=== PATIENT | female | born 1960 | race Caucasian/White ===

== ENCOUNTER 2017-11-06 18:50 | Emergency (ER) | payer OTHER ==
[~2017-11-06] VITALS: Ht 152.4 cm; Wt 93.0 kg
[~2017-11-06 18:50] MED LIST: ACIDOPHILUS PR1 EAC1 PO; ALBIPROI; ALBIPROI INH; ALBU.083IS; ALBU.083IS IH; ALBU3IS; ALBU3IS INH; ALBU90OI; ALBU90OI INH; ALBU90OI6 INH; ALBU90OI61 INH; ALLO100 PO; ALPR.5 PO; ALPR1 PO; AMOCLA875 PO; AMOX250 PO; AMOX500 PO; ASPI81CH PO; AZIT250 PO; AZIT500 PO; Acidophilus La100 GM; Amitiza24 MCG; Amitiza24 MCG PO; B Complex1 EAC2 PO; BECLNI16.8; BENTYL20 MG PO; BENZ.5; BUSP10 PO; Bactrim Ds Tab1 EACH PO; CENTRUM COMPLE1 EACH PO; CENTRUM ULTRA1 EACH PO; CEPH500 PO; CHOL10002 PO; CLARITIN10 MG PO; CLON.1 PO; CLON2; CLON2 PO; CYAN100 PO; CYAN1000 PO; CYCL10 PO; Cardizem LA240 MG PO; DESO.05TCA TP; DEXA6 PO; DIAZ10 PO; DIAZ5; DILT120 PO; DILT180 PO; DILT240 PO; DIPATR PO; DOCU100 PO; DOXY100 PO; DRON5; DULERA 200 MCG/13 GM INH; DULO60; DULO60 PO; Duoneb 2.5-0.5 M3 ML INH; ESCI10; ESCI10 PO; FISH1000 PO; FLUSAL1005; FLUSAL2505; FLUSAL2505 IH; FLUSAL2505 INH; FLUSAL5005; FLUSAL5005 IH; FLUSAL5005 INH; FLUT110OIA IH; GLIM2 PO; GLIP5 PO; GUAI600T33 PO; HYDACE10; HYDACE10 PO; HYDACE10B; HYDACE10B PO; HYDACE5; HYDACE5 PO; HYDACE5325 PO; HYDACE7.5 PO; HYDCHL25; HYDCHL25 PO; HYDCOR2.5C PR; IBUP600 PO; INDO50 PO; INSUASPI SC; INSUASPI SUBQ; INSULANI SC; INSULANI SUBQ; INSULANPEN SC; IPRAIS; IPRAOI; IPRAOI INH; LAVAP17G PO; LEVFLO500 PO; LEVO750 PO; LEVOTHYROXINE PO; LEVOXYL; LEVSOD125; LEVSOD125 PO; LEVSOD150 PO; LEVSOD75 PO; LISI20 PO; LOPE2C PO; LORA1; LORA1 PO; LORA10ER PO; LORA2; LUBIPROSTONE PO; MAGCIT300 PO; MARIJUANA; MARIJUANA INH; METF500; METF500 PO; METF500C PO; METH5; METH5 PO; METO10 PO; METO50 PO; METO50ER PO; METPRE4DP PO; MICO200S PV; MONT10T PO; MULVITMIND PO; NAPR500 PO; NAPR550 PO; NAPROXEN PO; NITR.4SL SL; NITR.6SL SL; NITR100CA PO; Naprosyn500 MG PO; Norco 10-325 T1 EACH PO; Novolin R100 UNIT/M; Novolog Fl100 UNIT/1 INJ; Novolog Fl100 UNIT/1 SC; OLAN10; OLAN7.5; OMEG1CAP30; OMEG1CAP30 PO; OMEP20ER PO; OMEP40CA12 PO; ONDA4ODT MM; OXYACE5T; OXYACE5T PO; OXYACE7.5T; OXYC10TA19 PO; PANT20 PO; PANT40 PO; PHENA200 PO; POLY17UD PO; PRAV20 PO; PRAV40 PO; PRAZ2 PO; PRED10; PRED10 PO; PRED20 PO; PREDNISONE TAPER; PROM25; PROM25 PO; PROM25S PR; Prednisone PO; Prednisone20 MG PO; Prednisone50 MG PO; QUET100 PO; QUET200 PO; QUET25 PO; RANI150 PO; RANITIDINE PO; RXALBOI INH; RXHYDGUAS PO; RXLORA1 PO; RXONDA4ODT MM; RXPROM25 PO; RXSULTRIDS PO; SENN187 PO; SPIRIVA; STOOL SOFTENER 100MG; SULTRIDS PO; SYNTHROID175 MCG PO; Sudogest120 MG PO; Synthroid175 MCG PO; TEMA15 PO; THEO200ERA PO; THYROID PO; TIOT18; TIOT18 INH; TOBR.3OPSO OP; TOPI50 PO; TRAZ; TUDORZA PRESS400 MCG IH; TUDORZA PRESS400 MCG INH; UREATC TOP; VENTOLIN; VITAMIN D-32000 UNI1 PO; Ventolin Soln3 ML INH; ZINC PO; ZINC15 PO; ZINC50 M2 PO; Zithromax250 MG PO; Zofran Odt4 MG SL; Zofran4 MG PO; Zofran8 MG PO; [UNRECOGNIZED DRUG - REMARK] PO
[2018-01-03] MEDS ORDERED: Valium5 MG PO (14:46)
[2018-01-03] MEDS ORDERED: LIDO700A20 TOP (14:46)
== END 2017-11-06 21:36 | disposition home or self-care (01) ==
LOC: ER 18:50
DX: N81.10 Cystocele, unspecified (principal); N81.6 Rectocele; Z79.4 Long term (current) use of insulin; Z79.899 Other long term (current) drug therapy; J44.9 Chronic obstructive pulmonary disease, unspecified; J45.909 Unspecified asthma, uncomplicated; E11.9 Type 2 diabetes mellitus without complications; F41.0 Panic disorder [episodic paroxysmal anxiety]; G43.909 Migraine, unspecified, not intractable, without status migrainosus; F31.9 Bipolar disorder, unspecified; Z98.51 Tubal ligation status; Z98.890 Other specified postprocedural states
CPT/HCPCS: 96372; 99284; J1885

== ENCOUNTER 2018-05-01 15:07 | Emergency (ER) | payer OTHER ==
[~2018-05-01] VITALS: Ht 152.4 cm; Wt 92.5 kg
[~2018-05-01 15:07] MED LIST changes: +LIDO700A20 TOP; +Valium5 MG PO
[2018-05-01 15:41] LABS: Source, Urine Clean Catch
[2018-05-01 15:48] LABS: Appearance, Urine Hazy (Clear); Bilirubin, Urine Neg (Neg); Blood, Urine 5+ (Neg); Color, Urine Yellow (P-Yellow); Glucose Qualitative, Urine Neg (Neg); Ketones, Urine Neg (Neg); Leukocyte Esterase, Urine 3+ (Neg); Nitrite, Urine Neg (Neg); Protein, Urine 2+ (Neg); Specific Gravity, Urine 1.015 (1.003-1.022); Urobilinogen, Urine NORM (Normal)
[2018-05-01 16:06] LABS: White Blood Cells, Urine 50-100 /hpf (0-5)
[2018-05-01 16:08] LABS: Bacteria Mod /hpf; Squamous Epithelial Cells Mod /hpf (Few)
[2018-05-01] MEDS ORDERED: CEPH500 PO (17:08)
[2018-05-01] MEDS ORDERED: PROM25 PO (17:08)
== END 2018-05-01 17:54 | disposition home or self-care (01) ==
LOC: ER 15:07
PROVIDERS: Emergency Medicine
DX: T83.511A Infection and inflammatory reaction due to indwelling urethral catheter, initial encounter (principal); J44.9 Chronic obstructive pulmonary disease, unspecified; E11.9 Type 2 diabetes mellitus without complications; F31.9 Bipolar disorder, unspecified
CPT/HCPCS: 81001; 87077; 87086; 87147; 87186; 96372; 99283; J2550; J3010

== ENCOUNTER 2018-05-22 15:37 | Emergency (ER) | payer OTHER ==
[~2018-05-22] VITALS: Ht 152.4 cm; Wt 90.7 kg
[2018-05-22 16:30] LABS: BASOPHILS ABSOLUTE AUTO 0.07 K/mm3 (0.00-0.23); BASOPHILS PERCENT AUTO 1 % (0-2); EOSINOPHILS ABSOLUTE AUTO 0.31 K/mm3 (0.00-0.68); EOSINOPHILS PERCENT AUTO 4 % (0-6); Hematocrit 38.1 % (33.0-51.0); Hemoglobin 12.2 g/dL (11.5-16.0); IMMATURE GRAN ABSOLUTE AUTO 0.04 K/mm3 (0.00-0.10); IMMATURE GRAN PERCENT AUTO 1 % (0-1); LYMPHOCYTES PERCENT AUTO 25 % (21-46); MONOCYTES ABSOLUTE AUTO 0.58 K/mm3 (0.16-1.47); MONOCYTES PERCENT AUTO 8 % (4-13); Mean Corpuscular HGB 25.8 pg (26.0-34.0); Mean Corpuscular Volume 81 fL (80-100); Mean Platelet Volume 10.6 fL (9.1-12.4); NEUTROPHILS ABSOLUTE AUTO 4.53 K/mm3 (1.96-9.15); NEUTROPHILS PERCENT AUTO 62 % (41-73); Platelet Count 274 K/mm3 (150-400); RDW Coefficient Variation 15.7 % (11.7-14.2); RDW Standard Deviation 45.8 fL (35.1-46.3); Red Blood Cell Count 4.72 M/mm3 (3.80-5.20); White Blood Cell Count 7.33 K/mm3 (4.00-11.30)
[2018-05-22 16:43] LABS: Alanine Aminotransfer (ALT/SGP 35 U/L (12-78); Albumin, Blood 3.9 g/dL (3.4-5.0); Albumin/Globulin Ratio 1.1 (0.8-1.8); Alk Phos 100 U/L (50-136); Anion Gap 8 mmol/L (6-16); Aspartate Aminotrans (AST/SGOT 23 U/L (12-37); Bilirubin, Total 0.2 mg/dL (0.1-1.0); Blood Urea Nitrogen 10 mg/dL (8-24); Bun/Creatinine Ratio 13.1 (12.0-20.0); CO2, Blood 25 mmol/L (21-32); Calcium, Blood 8.8 mg/dL (8.5-10.1); Chloride, Blood 105 mmol/L (98-108); Creatinine, Blood 0.77 mg/dL (0.40-1.00); Globulin, Blood 3.4 g/dL (2.2-4.0); Glomerular Filtration Rate >60 (60-); Glucose, Blood 108 mg/dL (70-99); Potassium, Blood 4.2 mmol/L (3.5-5.5); Sodium, Blood 138 mmol/L (136-145); Total Protein, Blood 7.3 g/dL (6.4-8.2); Troponin I <0.015 ng/mL (0.000-0.040)
[2018-05-22 17:22] LABS: Source, Urine Clean Catch
[2018-05-22] MEDS ORDERED: DOCU100 PO (17:23)
[2018-05-22 17:24] LABS: Bilirubin, Urine Neg (Neg); Blood, Urine 1+ (Neg); Glucose Qualitative, Urine Neg (Neg); Ketones, Urine Neg (Neg); Leukocyte Esterase, Urine 3+ (Neg); Nitrite, Urine Neg (Neg); Protein, Urine 1+ (Neg); Urobilinogen, Urine NORM (Normal)
[2018-05-22 17:30] LABS: Appearance, Urine Hazy (Clear); Color, Urine Yellow (P-Yellow)
[2018-05-22 17:31] LABS: White Blood Cells, Urine 50-100 /hpf (0-5)
[2018-05-22 17:32] LABS: Bacteria Rare /hpf; Squamous Epithelial Cells Few /hpf (Few)
[2018-05-22] MEDS ORDERED: ESCI10 PO (17:32)
[2018-05-22] MEDS ORDERED: CENTRUM SILVER1 EAC4 PO (17:33)
[2018-05-22] MEDS ORDERED: Zofran Odt4 MG SL (18:41)
[2018-05-22] MEDS ORDERED: Bactrim Ds Tab1 EACH PO (18:41)
== END 2018-05-22 19:03 | disposition home or self-care (01) ==
LOC: ER 15:37
PROVIDERS: Emergency Medicine; Physician Assistant
DX: R07.9 Chest pain, unspecified (principal); N39.0 Urinary tract infection, site not specified; Z79.899 Other long term (current) drug therapy; Z79.84 Long term (current) use of oral hypoglycemic drugs; Z79.4 Long term (current) use of insulin; J44.9 Chronic obstructive pulmonary disease, unspecified; E11.9 Type 2 diabetes mellitus without complications; F31.9 Bipolar disorder, unspecified
CPT/HCPCS: 36415; 71046; 80053; 81001; 84484; 85025; 87086; 87147; 93005; 93010; 96374; 99284-25; J1885

== ENCOUNTER 2019-12-24 12:42 | Day surgery (SDC) | payer OTHER ==
[~2019-12-24] VITALS: Ht 152.4 cm; Wt 88.9 kg
[~2019-12-24 12:42] MED LIST changes: +CENTRUM SILVER1 EAC4 PO
--- NOTE | 2019-12-24 15:49 | NUR ---
12/24/19 1549 KITTY TSANG History, Chart, Medications and Allergies reviewed before start of procedure. 3-LEAD EKG REVIEWED WITH PHYSICIAN PRIOR TO START OF PROCEDURE. O2 VIA N/C INTACT THROUGHOUT SEDATION/PROCEDURE. MONITOR INTACT WITH CONTINUOUS PULSE OXIMETRY AND INTERMITTENT BP. MAC WITH DR. MCKINNEY
--- NOTE | 2019-12-24 16:36 | NUR ---
Patient up to Ambulate independently. Gait steady. Discharge instructions reviewed with patient. Patient verbalizes understanding. Copy given to patient to take home. Discharged via wheelchair to private car for ride home. pt's iv dc'd januszl.
== END 2019-12-24 22:54 | disposition home or self-care (01) ==
LOC: ORSCMMR 12:42 → ORD 14:30 → ORSCMMR 14:30
PROVIDERS: Internal Medicine Gastroenterology
PROC: 0DB68ZX Excision of Stomach, Via Natural or Artificial Opening Endoscopic, Diagnostic (ICD-10-PCS; principal; 2019-12-24 14:30)
DX: Z01.818 Encounter for other preprocedural examination (principal); K44.9 Diaphragmatic hernia without obstruction or gangrene; K76.0 Fatty (change of) liver, not elsewhere classified; E11.9 Type 2 diabetes mellitus without complications; J45.909 Unspecified asthma, uncomplicated; K21.0 Gastro-esophageal reflux disease with esophagitis; I10 Essential (primary) hypertension; J44.9 Chronic obstructive pulmonary disease, unspecified; E03.9 Hypothyroidism, unspecified; F31.9 Bipolar disorder, unspecified; E66.9 Obesity, unspecified; Z68.38 Body mass index [BMI] 38.0-38.9, adult; Z79.4 Long term (current) use of insulin; Z79.899 Other long term (current) drug therapy
CPT/HCPCS: 82947; J2704; J7120

== ENCOUNTER → 2020-02-21 | Outpatient (CLI) | payer OTHER | END | disposition home or self-care (01) | LOC: LAB SHORT 17:45 → LAB 17:45 | DX: R30.9 Painful micturition, unspecified (principal) | CPT/HCPCS: 87086 ==

== ENCOUNTER → 2020-05-18 | Outpatient (CLI) | payer OTHER ==
[2020-05-18 18:16] LABS: BASOPHILS ABSOLUTE AUTO 0.08 K/mm3 (0.00-0.23); BASOPHILS PERCENT AUTO 1 % (0-2); EOSINOPHILS ABSOLUTE AUTO 0.28 K/mm3 (0.00-0.68); EOSINOPHILS PERCENT AUTO 4 % (0-6); Hematocrit 41.5 % (33.0-51.0); Hemoglobin 13.3 g/dL (11.5-16.0); IMMATURE GRAN ABSOLUTE AUTO 0.02 K/mm3 (0.00-0.10); IMMATURE GRAN PERCENT AUTO 0 % (0-1); LYMPHOCYTES ABSOLUTE AUTO 2.49 K/mm3 (0.84-5.20); LYMPHOCYTES PERCENT AUTO 32 % (21-46); MONOCYTES ABSOLUTE AUTO 0.55 K/mm3 (0.16-1.47); MONOCYTES PERCENT AUTO 7 % (4-13); Mean Corpuscular HGB 26.3 pg (26.0-34.0); Mean Corpuscular Volume 82 fL (80-100); Mean Platelet Volume 10.6 fL (9.1-12.4); NEUTROPHILS ABSOLUTE AUTO 4.41 K/mm3 (1.96-9.15); NEUTROPHILS PERCENT AUTO 56 % (41-73); Platelet Count 224 K/mm3 (150-400); RDW Coefficient Variation 17.8 % (11.7-14.2); RDW Standard Deviation 52.4 fL (35.1-46.3); Red Blood Cell Count 5.05 M/mm3 (3.80-5.20); White Blood Cell Count 7.83 K/mm3 (4.00-11.30)
[2020-05-18 18:41] LABS: Uric Acid, Blood 4.4 mg/dL (2.6-6.0)
[2020-05-18 19:17] LABS: Alanine Aminotransfer (ALT/SGP 25 U/L (12-78); Albumin, Blood 3.9 g/dL (3.4-5.0); Albumin/Globulin Ratio 1.2 (0.8-1.8); Alk Phos 100 U/L (50-136); Anion Gap 7 mmol/L (6-16); Aspartate Aminotrans (AST/SGOT 15 U/L (12-37); Bilirubin, Total 0.3 mg/dL (0.1-1.0); Blood Urea Nitrogen 20 mg/dL (8-24); Bun/Creatinine Ratio 24.9 (12.0-20.0); CO2, Blood 27 mmol/L (21-32); Calcium, Blood 9.1 mg/dL (8.5-10.1); Chloride, Blood 106 mmol/L (98-108); Globulin, Blood 3.3 g/dL (2.2-4.0); Glomerular Filtration Rate >60 (60-); Glucose, Blood 186 mg/dL (70-99); Potassium, Blood 4.3 mmol/L (3.5-5.5); Sodium, Blood 140 mmol/L (136-145); Total Protein, Blood 7.2 g/dL (6.4-8.2)
== END | disposition home or self-care (01) ==
LOC: LAB 16:45 → LAB SHORT 16:45
PROVIDERS: Family Medicine
DX: E11.9 Type 2 diabetes mellitus without complications (principal); M10.9 Gout, unspecified
CPT/HCPCS: 36415; 80053; 84550; 85025

== ENCOUNTER 2020-06-08 09:23 | Emergency (ER) | payer OTHER ==
[~2020-06-08] VITALS: Ht 152.4 cm; Wt 94.3 kg
== END 2020-06-08 13:04 | disposition home or self-care (01) ==
LOC: ER 09:23
DX: M25.551 Pain in right hip (principal); I10 Essential (primary) hypertension; E11.9 Type 2 diabetes mellitus without complications; J44.9 Chronic obstructive pulmonary disease, unspecified; F41.0 Panic disorder [episodic paroxysmal anxiety]; F41.9 Anxiety disorder, unspecified; F31.9 Bipolar disorder, unspecified; Z79.4 Long term (current) use of insulin; Z79.899 Other long term (current) drug therapy
CPT/HCPCS: 73502; 73700; 96374; 96375; 96376; 99284-25; J1170; J2405

== ENCOUNTER 2021-01-04 10:01 | Emergency (ER) | payer OTHER ==
[~2021-01-04] VITALS: Ht 152.4 cm; Wt 82.1 kg
[2021-01-04] MEDS ORDERED: Ativan1 MG PO (10:30)
[2021-01-04] MEDS ORDERED: TRAZ50 PO (10:30)
[2021-01-04 10:36] LABS: BASOPHILS ABSOLUTE AUTO 0.09 K/mm3 (0.00-0.23); BASOPHILS PERCENT AUTO 1 % (0-2); EOSINOPHILS ABSOLUTE AUTO 0.39 K/mm3 (0.00-0.68); EOSINOPHILS PERCENT AUTO 5 % (0-6); Hematocrit 43.2 % (33.0-51.0); Hemoglobin 14.7 g/dL (11.5-16.0); IMMATURE GRAN ABSOLUTE AUTO 0.03 K/mm3 (0.00-0.10); IMMATURE GRAN PERCENT AUTO 0 % (0-1); LYMPHOCYTES ABSOLUTE AUTO 2.05 K/mm3 (0.84-5.20); LYMPHOCYTES PERCENT AUTO 28 % (21-46); MONOCYTES ABSOLUTE AUTO 0.45 K/mm3 (0.16-1.47); MONOCYTES PERCENT AUTO 6 % (4-13); Mean Corpuscular HGB 29.8 pg (26.0-34.0); Mean Corpuscular Volume 88 fL (80-100); Mean Platelet Volume 10.6 fL (9.1-12.4); NEUTROPHILS ABSOLUTE AUTO 4.21 K/mm3 (1.96-9.15); NEUTROPHILS PERCENT AUTO 58 % (41-73); Platelet Count 212 K/mm3 (150-400); RDW Coefficient Variation 12.8 % (11.7-14.2); RDW Standard Deviation 41.1 fL (35.1-46.3); Red Blood Cell Count 4.93 M/mm3 (3.80-5.20); White Blood Cell Count 7.22 K/mm3 (4.00-11.30)
[2021-01-04] MEDS ORDERED: OMEP20ER PO (10:44)
[2021-01-04 11:02] LABS: Alanine Aminotransfer (ALT/SGP 27 U/L (12-78); Albumin/Globulin Ratio 1.3 (0.8-1.8); Alk Phos 95 U/L (50-136); Anion Gap 8 mmol/L (6-16); Aspartate Aminotrans (AST/SGOT 14 U/L (12-37); Bilirubin, Total 0.4 mg/dL (0.1-1.0); Blood Urea Nitrogen 14 mg/dL (8-24); Bun/Creatinine Ratio 19.3 (12.0-20.0); CO2, Blood 24 mmol/L (21-32); Chloride, Blood 105 mmol/L (98-108); Creatinine, Blood 0.73 mg/dL (0.40-1.00); Globulin, Blood 3.1 g/dL (2.2-4.0); Glomerular Filtration Rate >60 (60-); Glucose, Blood 149 mg/dL (70-99); Potassium, Blood 4.4 mmol/L (3.5-5.5); Sodium, Blood 137 mmol/L (136-145); Total Protein, Blood 7.1 g/dL (6.4-8.2); Troponin I <0.015 ng/mL (0.000-0.040)
== END 2021-01-04 13:34 | disposition home or self-care (01) ==
LOC: ER 10:01
PROVIDERS: Emergency Medicine
DX: R07.9 Chest pain, unspecified (principal); J44.9 Chronic obstructive pulmonary disease, unspecified; E11.9 Type 2 diabetes mellitus without complications; I10 Essential (primary) hypertension; K21.9 Gastro-esophageal reflux disease without esophagitis; E03.9 Hypothyroidism, unspecified; Z79.82 Long term (current) use of aspirin; Z79.899 Other long term (current) drug therapy
CPT/HCPCS: 36415; 71045; 80053; 84484; 85025; 93005; 93010; 96374; 96375; 99285-25; A9270; C9113; J1790; J2060; J7030

== ENCOUNTER 2021-01-08 23:29 | Emergency (ER) | payer OTHER ==
[~2021-01-08] VITALS: Ht 152.4 cm; Wt 83.5 kg
[~2021-01-08 23:29] MED LIST changes: +Ativan1 MG PO; +TRAZ50 PO
[2021-01-09 01:09] LABS: BASOPHILS ABSOLUTE AUTO 0.09 K/mm3 (0.00-0.23); BASOPHILS PERCENT AUTO 1 % (0-2); EOSINOPHILS ABSOLUTE AUTO 0.45 K/mm3 (0.00-0.68); EOSINOPHILS PERCENT AUTO 7 % (0-6); Hematocrit 39.6 % (33.0-51.0); Hemoglobin 13.4 g/dL (11.5-16.0); IMMATURE GRAN ABSOLUTE AUTO 0.02 K/mm3 (0.00-0.10); IMMATURE GRAN PERCENT AUTO 0 % (0-1); LYMPHOCYTES ABSOLUTE AUTO 2.33 K/mm3 (0.84-5.20); LYMPHOCYTES PERCENT AUTO 37 % (21-46); MONOCYTES PERCENT AUTO 8 % (4-13); Mean Corpuscular HGB 30.2 pg (26.0-34.0); Mean Corpuscular HGB Conc 33.8 g/dL (31.5-36.5); Mean Corpuscular Volume 89 fL (80-100); Mean Platelet Volume 10.9 fL (9.1-12.4); NEUTROPHILS ABSOLUTE AUTO 2.93 K/mm3 (1.96-9.15); NEUTROPHILS PERCENT AUTO 46 % (41-73); Platelet Count 187 K/mm3 (150-400); RDW Coefficient Variation 13.1 % (11.7-14.2); RDW Standard Deviation 42.7 fL (35.1-46.3); Red Blood Cell Count 4.44 M/mm3 (3.80-5.20); White Blood Cell Count 6.32 K/mm3 (4.00-11.30)
[2021-01-09 01:22] LABS: Alanine Aminotransfer (ALT/SGP 26 U/L (12-78); Albumin, Blood 3.8 g/dL (3.4-5.0); Albumin/Globulin Ratio 1.3 (0.8-1.8); Alk Phos 88 U/L (50-136); Anion Gap 4 mmol/L (6-16); Aspartate Aminotrans (AST/SGOT 12 U/L (12-37); Bilirubin, Total 0.3 mg/dL (0.1-1.0); Blood Urea Nitrogen 14 mg/dL (8-24); Bun/Creatinine Ratio 16.2 (12.0-20.0); CO2, Blood 30 mmol/L (21-32); Calcium, Blood 8.8 mg/dL (8.5-10.1); Chloride, Blood 105 mmol/L (98-108); Creatinine, Blood 0.87 mg/dL (0.40-1.00); Glomerular Filtration Rate >60 (60-); Glucose, Blood 145 mg/dL (70-99); Potassium, Blood 3.8 mmol/L (3.5-5.5); Sodium, Blood 139 mmol/L (136-145); Total Protein, Blood 6.8 g/dL (6.4-8.2)
[2021-01-09 02:16] LABS: Troponin I <0.015 ng/mL (0.000-0.040)
[2021-01-09] MEDS ORDERED: Prednisone20 MG PO (02:22)
== END 2021-01-09 02:45 | disposition home or self-care (01) ==
LOC: ER 23:29
PROVIDERS: Emergency Medicine
DX: J44.1 Chronic obstructive pulmonary disease with (acute) exacerbation (principal); E11.9 Type 2 diabetes mellitus without complications; Z79.899 Other long term (current) drug therapy; Z79.4 Long term (current) use of insulin
CPT/HCPCS: 36415; 80053; 84484; 85025; 93005; 93010; 94640; 96374; 99284; J2930

== ENCOUNTER 2021-01-09 13:07 | Emergency (ER) | payer OTHER ==
[~2021-01-09] VITALS: Ht 152.4 cm; Wt 83.5 kg
[2021-01-09 14:08] LABS: BASOPHILS ABSOLUTE AUTO 0.04 K/mm3 (0.00-0.23); BASOPHILS PERCENT AUTO 1 % (0-2); EOSINOPHILS ABSOLUTE AUTO 0.01 K/mm3 (0.00-0.68); EOSINOPHILS PERCENT AUTO 0 % (0-6); Hematocrit 41.5 % (33.0-51.0); Hemoglobin 14.2 g/dL (11.5-16.0); IMMATURE GRAN ABSOLUTE AUTO 0.07 K/mm3 (0.00-0.10); IMMATURE GRAN PERCENT AUTO 1 % (0-1); LYMPHOCYTES ABSOLUTE AUTO 0.72 K/mm3 (0.84-5.20); LYMPHOCYTES PERCENT AUTO 9 % (21-46); MONOCYTES ABSOLUTE AUTO 0.09 K/mm3 (0.16-1.47); MONOCYTES PERCENT AUTO 1 % (4-13); Mean Corpuscular HGB Conc 34.2 g/dL (31.5-36.5); Mean Corpuscular Volume 88 fL (80-100); Mean Platelet Volume 10.7 fL (9.1-12.4); NEUTROPHILS ABSOLUTE AUTO 6.99 K/mm3 (1.96-9.15); NEUTROPHILS PERCENT AUTO 88 % (41-73); Platelet Count 200 K/mm3 (150-400); RDW Coefficient Variation 12.9 % (11.7-14.2); RDW Standard Deviation 41.7 fL (35.1-46.3); Red Blood Cell Count 4.73 M/mm3 (3.80-5.20); White Blood Cell Count 7.92 K/mm3 (4.00-11.30)
[2021-01-09 14:25] LABS: Alanine Aminotransfer (ALT/SGP 29 U/L (12-78); Albumin, Blood 4.2 g/dL (3.4-5.0); Albumin/Globulin Ratio 1.2 (0.8-1.8); Alk Phos 95 U/L (50-136); Anion Gap 8 mmol/L (6-16); Aspartate Aminotrans (AST/SGOT 16 U/L (12-37); Bilirubin, Total 0.3 mg/dL (0.1-1.0); Blood Urea Nitrogen 16 mg/dL (8-24); Bun/Creatinine Ratio 19.3 (12.0-20.0); CO2, Blood 24 mmol/L (21-32); Calcium, Blood 9.7 mg/dL (8.5-10.1); Chloride, Blood 103 mmol/L (98-108); Creatinine, Blood 0.83 mg/dL (0.40-1.00); Globulin, Blood 3.6 g/dL (2.2-4.0); Glomerular Filtration Rate >60 (60-); Glucose, Blood 320 mg/dL (70-99); Potassium, Blood 4.2 mmol/L (3.5-5.5); Sodium, Blood 135 mmol/L (136-145); Total Protein, Blood 7.8 g/dL (6.4-8.2)
== END 2021-01-09 17:49 | disposition home or self-care (01) ==
LOC: ER 13:07
PROVIDERS: Emergency Medicine
DX: E11.65 Type 2 diabetes mellitus with hyperglycemia (principal); J44.1 Chronic obstructive pulmonary disease with (acute) exacerbation
CPT/HCPCS: 36415; 80053; 82010; 82800; 82947; 84484; 85025; 93005; 93010; 94640; 99284-25; A9270; J7030

== ENCOUNTER 2021-01-30 15:23 | Emergency (ER) | payer OTHER ==
[~2021-01-30] VITALS: Ht 152.4 cm; Wt 84.4 kg
== END 2021-01-30 16:28 | disposition home or self-care (01) ==
LOC: ER 15:23
DX: S63.613A Unspecified sprain of left middle finger, initial encounter (principal); J44.9 Chronic obstructive pulmonary disease, unspecified; E11.9 Type 2 diabetes mellitus without complications; G89.4 Chronic pain syndrome; E03.9 Hypothyroidism, unspecified; I10 Essential (primary) hypertension; K21.9 Gastro-esophageal reflux disease without esophagitis; Z79.4 Long term (current) use of insulin; Z79.899 Other long term (current) drug therapy; W23.0XXA Caught, crushed, jammed, or pinched between moving objects, initial encounter
CPT/HCPCS: 29130; 73140; 96372-59; 99283-25; J1885

== ENCOUNTER 2021-02-03 18:45 | Emergency (ER) | payer OTHER ==
[~2021-02-03] VITALS: Ht 152.4 cm; Wt 81.7 kg
== END 2021-02-03 21:11 | disposition home or self-care (01) ==
LOC: ER 18:45
DX: S56.11 Strain of flexor muscle, fascia and tendon of other and unspecified finger at forearm level (principal); J44.9 Chronic obstructive pulmonary disease, unspecified; E11.9 Type 2 diabetes mellitus without complications; Z79.899 Other long term (current) drug therapy; W23.0XXD Caught, crushed, jammed, or pinched between moving objects, subsequent encounter
CPT/HCPCS: 29130; 73140; 99283-25; A9270

== ENCOUNTER 2021-02-14 18:08 | Emergency (ER) | payer OTHER ==
[~2021-02-14] VITALS: Ht 152.4 cm; Wt 84.4 kg
[2021-02-14 18:53] LABS: BASOPHILS ABSOLUTE AUTO 0.08 K/mm3 (0.00-0.23); BASOPHILS PERCENT AUTO 1 % (0-2); EOSINOPHILS ABSOLUTE AUTO 0.37 K/mm3 (0.00-0.68); EOSINOPHILS PERCENT AUTO 6 % (0-6); Hematocrit 39.3 % (33.0-51.0); Hemoglobin 13.3 g/dL (11.5-16.0); IMMATURE GRAN ABSOLUTE AUTO 0.03 K/mm3 (0.00-0.10); IMMATURE GRAN PERCENT AUTO 1 % (0-1); LYMPHOCYTES ABSOLUTE AUTO 2.65 K/mm3 (0.84-5.20); LYMPHOCYTES PERCENT AUTO 40 % (21-46); MONOCYTES ABSOLUTE AUTO 0.44 K/mm3 (0.16-1.47); MONOCYTES PERCENT AUTO 7 % (4-13); Mean Corpuscular HGB 30.1 pg (26.0-34.0); Mean Corpuscular HGB Conc 33.8 g/dL (31.5-36.5); Mean Corpuscular Volume 89 fL (80-100); Mean Platelet Volume 10.2 fL (9.1-12.4); NEUTROPHILS ABSOLUTE AUTO 3.05 K/mm3 (1.96-9.15); NEUTROPHILS PERCENT AUTO 46 % (41-73); Platelet Count 222 K/mm3 (150-400); RDW Coefficient Variation 13.1 % (11.7-14.2); RDW Standard Deviation 42.9 fL (35.1-46.3); Red Blood Cell Count 4.42 M/mm3 (3.80-5.20); White Blood Cell Count 6.62 K/mm3 (4.00-11.30)
[2021-02-14 19:11] LABS: Alanine Aminotransfer (ALT/SGP 25 U/L (12-78); Albumin/Globulin Ratio 1.3 (0.8-1.8); Alk Phos 85 U/L (50-136); Anion Gap 3 mmol/L (6-16); Aspartate Aminotrans (AST/SGOT 16 U/L (12-37); Bilirubin, Total 0.4 mg/dL (0.1-1.0); Blood Urea Nitrogen 18 mg/dL (8-24); Bun/Creatinine Ratio 21.5 (12.0-20.0); CO2, Blood 29 mmol/L (21-32); Calcium, Blood 9.3 mg/dL (8.5-10.1); Chloride, Blood 106 mmol/L (98-108); Creatinine, Blood 0.84 mg/dL (0.40-1.00); Glomerular Filtration Rate >60 (60-); Glucose, Blood 127 mg/dL (70-99); Potassium, Blood 4.1 mmol/L (3.5-5.5); Sodium, Blood 138 mmol/L (136-145); Troponin I <0.015 ng/mL (0.000-0.040)
[2021-02-14] MEDS ORDERED: Prednisone50 MG PO (22:44)
[2021-02-14] MEDS ORDERED: ATROVENT HFA12.9 GM INH (22:44)
[2021-02-14] MEDS ORDERED: CYCL10 PO (22:44)
== END 2021-02-14 23:27 | disposition home or self-care (01) ==
LOC: ER 18:08
PROVIDERS: Physician Assistant
DX: J44.1 Chronic obstructive pulmonary disease with (acute) exacerbation (principal); S76.011A Strain of muscle, fascia and tendon of right hip, initial encounter; Z79.899 Other long term (current) drug therapy; X50.1XXA Overexertion from prolonged static or awkward postures, initial encounter
CPT/HCPCS: 36415; 71046; 80053; 84484; 85025; 93005; 93010; 94640; 96374; 99285-25; A9270; J1885; J7512

== ENCOUNTER 2021-03-30 10:41 | Emergency (ER) | payer OTHER ==
[~2021-03-30] VITALS: Ht 152.4 cm; Wt 83.5 kg
[~2021-03-30 10:41] MED LIST changes: +ATROVENT HFA12.9 GM INH
[2021-03-30 12:26] LABS: BASOPHILS ABSOLUTE AUTO 0.04 K/mm3 (0.00-0.23); BASOPHILS PERCENT AUTO 0 % (0-2); EOSINOPHILS ABSOLUTE AUTO 0.03 K/mm3 (0.00-0.68); EOSINOPHILS PERCENT AUTO 0 % (0-6); Hematocrit 46.4 % (33.0-51.0); Hemoglobin 15.6 g/dL (11.5-16.0); IMMATURE GRAN ABSOLUTE AUTO 0.04 K/mm3 (0.00-0.10); IMMATURE GRAN PERCENT AUTO 0 % (0-1); LYMPHOCYTES PERCENT AUTO 9 % (21-46); MONOCYTES ABSOLUTE AUTO 1.04 K/mm3 (0.16-1.47); MONOCYTES PERCENT AUTO 8 % (4-13); Mean Corpuscular HGB 30.1 pg (26.0-34.0); Mean Corpuscular HGB Conc 33.6 g/dL (31.5-36.5); Mean Corpuscular Volume 90 fL (80-100); Mean Platelet Volume 11.1 fL (9.1-12.4); NEUTROPHILS ABSOLUTE AUTO 10.23 K/mm3 (1.96-9.15); NEUTROPHILS PERCENT AUTO 82 % (41-73); Platelet Count 322 K/mm3 (150-400); RDW Coefficient Variation 12.9 % (11.7-14.2); RDW Standard Deviation 42.3 fL (35.1-46.3); Red Blood Cell Count 5.18 M/mm3 (3.80-5.20); White Blood Cell Count 12.48 K/mm3 (4.00-11.30)
[2021-03-30 12:32] LABS: Alanine Aminotransfer (ALT/SGP 25 U/L (12-78); Albumin, Blood 4.3 g/dL (3.4-5.0); Albumin/Globulin Ratio 1.2 (0.8-1.8); Alk Phos 77 U/L (50-136); Anion Gap 7 mmol/L (6-16); Aspartate Aminotrans (AST/SGOT 18 U/L (12-37); Bilirubin, Total 0.4 mg/dL (0.1-1.0); Blood Urea Nitrogen 24 mg/dL (8-24); CO2, Blood 22 mmol/L (21-32); Calcium, Blood 9.2 mg/dL (8.5-10.1); Chloride, Blood 109 mmol/L (98-108); Creatinine, Blood 0.78 mg/dL (0.40-1.00); Globulin, Blood 3.5 g/dL (2.2-4.0); Glomerular Filtration Rate >60 (60-); Glucose, Blood 140 mg/dL (70-99); Potassium, Blood 4.1 mmol/L (3.5-5.5); Sodium, Blood 138 mmol/L (136-145); Total Protein, Blood 7.8 g/dL (6.4-8.2)
[2021-03-30 13:12] LABS: Source, Urine Clean Catch
[2021-03-30 13:22] LABS: Appearance, Urine Clear (Clear); Bilirubin, Urine Neg (Neg); Blood, Urine Neg (Neg); Color, Urine Yellow (P-Yellow); Glucose Qualitative, Urine Neg (Neg); Ketones, Urine 4+ (Neg); Leukocyte Esterase, Urine Neg (Neg); Nitrite, Urine Neg (Neg); Protein, Urine 2+ (Neg); Specific Gravity, Urine 1.025 (1.003-1.022); Urobilinogen, Urine NORM (Normal)
[2021-03-30 13:35] LABS: Bacteria Mod /hpf; Hyaline Casts 0-2 /lpf (0-2); Red Blood Cells, Urine 0-2 /hpf (0-2); Squamous Epithelial Cells Few /hpf (Few); White Blood Cells, Urine 0-2 /hpf (0-5)
== END 2021-03-30 16:16 | disposition home or self-care (01) ==
LOC: ER 10:41
PROVIDERS: Physician Assistant
DX: K52.9 Noninfective gastroenteritis and colitis, unspecified (principal); D72.829 Elevated white blood cell count, unspecified; J44.9 Chronic obstructive pulmonary disease, unspecified; E13.9 Other specified diabetes mellitus without complications; Z20.822 Contact with and (suspected) exposure to COVID-19; Z79.899 Other long term (current) drug therapy
CPT/HCPCS: 0031A; 36415; 74177; 80053; 81001; 83690; 85025; 86850; 86900; 86901; 87086; 96374-59; 99284-25; J2405; J7120; Q9967

== ENCOUNTER → 2021-04-02 | Outpatient (CLI) | payer OTHER ==
[2021-04-03 12:43] LABS: C DIFFICILE DNA NEGATIVE (Negative)
== END | disposition home or self-care (01) ==
LOC: LAB 10:33 → LAB SHORT 10:33
PROVIDERS: Emergency Medicine
DX: K52.9 Noninfective gastroenteritis and colitis, unspecified (principal)
CPT/HCPCS: 87493

== ENCOUNTER 2022-01-02 10:04 | Emergency (ER) | payer OTHER ==
[~2022-01-02] VITALS: Ht 152.4 cm; Wt 77.1 kg
[2022-01-02 11:10] LABS: BASOPHILS ABSOLUTE AUTO 0.08 K/mm3 (0.00-0.23); BASOPHILS PERCENT AUTO 1 % (0-2); EOSINOPHILS ABSOLUTE AUTO 0.23 K/mm3 (0.00-0.68); EOSINOPHILS PERCENT AUTO 4 % (0-6); Hematocrit 43.4 % (33.0-51.0); Hemoglobin 14.9 g/dL (11.5-16.0); IMMATURE GRAN ABSOLUTE AUTO 0.02 K/mm3 (0.00-0.10); IMMATURE GRAN PERCENT AUTO 0 % (0-1); LYMPHOCYTES ABSOLUTE AUTO 2.15 K/mm3 (0.84-5.20); LYMPHOCYTES PERCENT AUTO 34 % (21-46); MONOCYTES ABSOLUTE AUTO 0.39 K/mm3 (0.16-1.47); MONOCYTES PERCENT AUTO 6 % (4-13); Mean Corpuscular HGB 31.1 pg (26.0-34.0); Mean Corpuscular HGB Conc 34.3 g/dL (31.5-36.5); Mean Corpuscular Volume 91 fL (80-100); Mean Platelet Volume 11.4 fL (9.1-12.4); NEUTROPHILS ABSOLUTE AUTO 3.38 K/mm3 (1.96-9.15); NEUTROPHILS PERCENT AUTO 54 % (41-73); Platelet Count 196 K/mm3 (150-400); RDW Coefficient Variation 12.5 % (11.7-14.2); RDW Standard Deviation 41.7 fL (35.1-46.3); Red Blood Cell Count 4.79 M/mm3 (3.80-5.20); White Blood Cell Count 6.25 K/mm3 (4.00-11.30)
[2022-01-02 11:14] LABS: Influenza A, PCR NEGATIVE (NEGATIVE); Influenza B, PCR NEGATIVE (NEGATIVE); Resp Syncytial Virus, PCR NEGATIVE (NEGATIVE); SARS-Cov-2 (COVID-19) PCR, MMC NEGATIVE (NEGATIVE)
[2022-01-02 11:14] LABS: Albumin, Blood 4.1 g/dL (3.4-5.0); Albumin/Globulin Ratio 1.3 (0.8-1.8); Bilirubin, Total 0.6 mg/dL (0.1-1.0); Bun/Creatinine Ratio 18.6 (12.0-20.0); Calcium, Blood 9.1 mg/dL (8.5-10.1); Creatinine, Blood 0.7 mg/dL (0.40-1.00); Globulin, Blood 3.1 g/dL (2.2-4.0); Potassium, Blood 4.2 mmol/L (3.5-5.5); Total Protein, Blood 7.2 g/dL (6.4-8.2)
[2022-01-02] MEDS ORDERED: ONDA4ODT MM (12:02)
== END 2022-01-02 13:13 | disposition home or self-care (01) ==
LOC: ER 10:04
PROVIDERS: Emergency Medicine
DX: R10.31 Right lower quadrant pain (principal); J44.9 Chronic obstructive pulmonary disease, unspecified; E11.9 Type 2 diabetes mellitus without complications; F31.9 Bipolar disorder, unspecified; Z79.899 Other long term (current) drug therapy; Z20.822 Contact with and (suspected) exposure to COVID-19
CPT/HCPCS: 0241U; 36415; 74177; 80053; 83690; 85025; 96374-59; 96375; 99284-25; J2405; J3010; J7030; Q9967

== ENCOUNTER 2022-02-17 20:57 | Emergency (ER) | payer OTHER ==
[~2022-02-17] VITALS: Ht 167.6 cm; Wt 77.1 kg
[2022-02-17 21:37] LABS: BASOPHILS ABSOLUTE AUTO 0.01 K/mm3 (0.00-0.23); BASOPHILS PERCENT AUTO 0 % (0-2); EOSINOPHILS ABSOLUTE AUTO 0.01 K/mm3 (0.00-0.68); EOSINOPHILS PERCENT AUTO 0 % (0-6); Hematocrit 41.5 % (33.0-51.0); Hemoglobin 14.6 g/dL (11.5-16.0); IMMATURE GRAN ABSOLUTE AUTO 0.03 K/mm3 (0.00-0.10); IMMATURE GRAN PERCENT AUTO 1 % (0-1); LYMPHOCYTES ABSOLUTE AUTO 0.82 K/mm3 (0.84-5.20); LYMPHOCYTES PERCENT AUTO 14 % (21-46); MONOCYTES PERCENT AUTO 2 % (4-13); Mean Corpuscular HGB 31.1 pg (26.0-34.0); Mean Corpuscular HGB Conc 35.2 g/dL (31.5-36.5); Mean Corpuscular Volume 89 fL (80-100); Mean Platelet Volume 11.2 fL (9.1-12.4); NEUTROPHILS ABSOLUTE AUTO 4.84 K/mm3 (1.96-9.15); NEUTROPHILS PERCENT AUTO 83 % (41-73); NRBC ABSOLUTE 0.05 K/mm3 (0.00-0.02); NRBC Auto 0.9 /100 WBC (0.0-0.2); Platelet Count 170 K/mm3 (150-400); RDW Coefficient Variation 11.9 % (11.7-14.2); RDW Standard Deviation 38.2 fL (35.1-46.3); Red Blood Cell Count 4.69 M/mm3 (3.80-5.20); White Blood Cell Count 5.81 K/mm3 (4.00-11.30)
[2022-02-17 21:54] LABS: Albumin/Globulin Ratio 1.2 (0.8-1.8); Bilirubin, Total 0.4 mg/dL (0.1-1.0); Bun/Creatinine Ratio 22.7 (12.0-20.0); Calcium, Blood 9.6 mg/dL (8.5-10.1); Creatinine, Blood 0.66 mg/dL (0.40-1.00); Globulin, Blood 3.3 g/dL (2.2-4.0); Potassium, Blood 4.1 mmol/L (3.5-5.5); Total Protein, Blood 7.3 g/dL (6.4-8.2)
[2022-02-18 04:05] LABS: Source, Urine Clean Catch
[2022-02-18 04:15] LABS: Bilirubin, Urine Neg (Neg); Blood, Urine Neg (Neg); Glucose Qualitative, Urine 4+ (Neg); Ketones, Urine Neg (Neg); Leukocyte Esterase, Urine Neg (Neg); Nitrite, Urine Neg (Neg); Protein, Urine 1+ (Neg); Specific Gravity, Urine 1.015 (1.003-1.022); Urobilinogen, Urine NORM (Normal)
[2022-02-18 04:23] LABS: Appearance, Urine Clear (Clear); Color, Urine Yellow (P-Yellow)
== END 2022-02-18 04:50 | disposition home or self-care (01) ==
LOC: ER 20:57
PROVIDERS: Physician Assistant
DX: R10.32 Left lower quadrant pain (principal); G89.29 Other chronic pain; J44.9 Chronic obstructive pulmonary disease, unspecified; E11.65 Type 2 diabetes mellitus with hyperglycemia; Z79.899 Other long term (current) drug therapy
CPT/HCPCS: 36415; 74177; 80053; 83690; 85025; A9270; J1885; J7030; Q9967

== ENCOUNTER 2022-02-19 11:41 | Emergency (ER) | payer OTHER ==
[~2022-02-19] VITALS: Ht 152.4 cm; Wt 79.4 kg
== END 2022-02-19 17:45 | disposition home or self-care (01) ==
LOC: ER 11:41
DX: K59.00 Constipation, unspecified (principal); J44.9 Chronic obstructive pulmonary disease, unspecified; E11.9 Type 2 diabetes mellitus without complications; Z79.899 Other long term (current) drug therapy
CPT/HCPCS: 99283

== ENCOUNTER 2022-03-16 09:02 | Emergency (ER) | payer OTHER ==
[~2022-03-16] VITALS: Ht 152.4 cm; Wt 79.4 kg
[2022-03-16 10:16] LABS: BASOPHILS ABSOLUTE AUTO 0.04 K/mm3 (0.00-0.23); BASOPHILS PERCENT AUTO 1 % (0-2); EOSINOPHILS ABSOLUTE AUTO 0.16 K/mm3 (0.00-0.68); EOSINOPHILS PERCENT AUTO 3 % (0-6); Hemoglobin 14.5 g/dL (11.5-16.0); IMMATURE GRAN ABSOLUTE AUTO 0.02 K/mm3 (0.00-0.10); IMMATURE GRAN PERCENT AUTO 0 % (0-1); LYMPHOCYTES ABSOLUTE AUTO 1.71 K/mm3 (0.84-5.20); LYMPHOCYTES PERCENT AUTO 33 % (21-46); MONOCYTES PERCENT AUTO 6 % (4-13); Mean Corpuscular HGB 31.3 pg (26.0-34.0); Mean Corpuscular HGB Conc 34.5 g/dL (31.5-36.5); Mean Corpuscular Volume 91 fL (80-100); Mean Platelet Volume 11.5 fL (9.1-12.4); NEUTROPHILS ABSOLUTE AUTO 2.92 K/mm3 (1.96-9.15); NEUTROPHILS PERCENT AUTO 57 % (41-73); Platelet Count 166 K/mm3 (150-400); RDW Coefficient Variation 12.1 % (11.7-14.2); RDW Standard Deviation 39.7 fL (35.1-46.3); Red Blood Cell Count 4.64 M/mm3 (3.80-5.20); White Blood Cell Count 5.15 K/mm3 (4.00-11.30)
[2022-03-16 10:42] LABS: Albumin, Blood 3.9 g/dL (3.4-5.0); Albumin/Globulin Ratio 1.3 (0.8-1.8); Bilirubin, Total 0.6 mg/dL (0.1-1.0); Bun/Creatinine Ratio 16.1 (12.0-20.0); Calcium, Blood 9.1 mg/dL (8.5-10.1); Creatinine, Blood 0.81 mg/dL (0.40-1.00); Potassium, Blood 4.2 mmol/L (3.5-5.5); Total Protein, Blood 6.9 g/dL (6.4-8.2)
[2022-03-16 11:08] LABS: Source, Urine Clean Catch
[2022-03-16 11:10] LABS: Appearance, Urine Clear (Clear); Bilirubin, Urine Neg (Neg); Blood, Urine Neg (Neg); Color, Urine Yellow (P-Yellow); Glucose Qualitative, Urine Neg (Neg); Ketones, Urine Neg (Neg); Leukocyte Esterase, Urine Neg (Neg); Nitrite, Urine Neg (Neg); Protein, Urine Neg (Neg); Specific Gravity, Urine 1.015 (1.003-1.022); Urobilinogen, Urine NORM (Normal)
[2022-03-16] MEDS ORDERED: BISA5EC PO (13:29)
[2022-03-16] MEDS ORDERED: PRAHYD1AEA PR (13:29)
[2022-03-16] MEDS ORDERED: MAGCIT300 PO (13:29)
== END 2022-03-16 14:00 | disposition home or self-care (01) ==
LOC: ER 09:02
PROVIDERS: Student in an Organized Health Care Education/Training Program
DX: R10.9 Unspecified abdominal pain (principal); K59.00 Constipation, unspecified; K64.9 Unspecified hemorrhoids; J44.9 Chronic obstructive pulmonary disease, unspecified; E11.9 Type 2 diabetes mellitus without complications
CPT/HCPCS: 36415; 74177; 80053; 81003; 83605; 83690; 85025; J1885; J7030; Q9967

== ENCOUNTER 2022-07-14 16:04 | Emergency (ER) | payer OTHER ==
[~2022-07-14 16:04] MED LIST changes: +BISA5EC PO; +PRAHYD1AEA PR
[2022-07-14] MEDS ORDERED: LEVSOD137 PO (18:11)
[2022-07-14] MEDS ORDERED: ALLO100 PO (18:12)
[2022-07-14] MEDS ORDERED: ATOR20 PO (18:12)
[2022-07-14] MEDS ORDERED: B12-FOLIC ACID1 EACH PO (18:12)
== END 2022-07-14 20:07 | disposition home or self-care (01) ==
DX: R10.33 Periumbilical pain (principal); J44.9 Chronic obstructive pulmonary disease, unspecified; E11.9 Type 2 diabetes mellitus without complications; Z20.822 Contact with and (suspected) exposure to COVID-19; Z79.899 Other long term (current) drug therapy

== ENCOUNTER 2023-01-07 07:37 | Emergency (ER) | payer OTHER ==
[~2023-01-07] VITALS: Ht 152.4 cm; Wt 81.7 kg
[~2023-01-07 07:37] MED LIST changes: +ATOR20 PO; +B12-FOLIC ACID1 EACH PO; +LEVSOD137 PO; +Pepcid40 MG PO
[2023-01-07 07:57] VITALS: BP 138/100
== END 2023-01-07 08:32 | disposition home or self-care (01) ==
LOC: ER 07:37
DX: R11.2 Nausea with vomiting, unspecified (principal); K22.6 Gastro-esophageal laceration-hemorrhage syndrome; E11.9 Type 2 diabetes mellitus without complications; J44.9 Chronic obstructive pulmonary disease, unspecified; Z79.899 Other long term (current) drug therapy
CPT/HCPCS: 99283

== ENCOUNTER 2023-12-15 06:42 | Day surgery (SDC) | payer OTHER ==
[~2023-12-15] VITALS: Ht 152.4 cm; Wt 79.6 kg
[~2023-12-15 06:42] MED LIST changes: +ERGO400 PO; +Lactated Ringer's 1,000 ML IV SCH; +NOVOLOG FL100 UNIT/3 SC
[2023-12-15] MEDS ORDERED: propofoL 60 ML IV ONE (06:52)
[2023-12-15] MEDS ORDERED: Atropine Sulfate 0.1 MG/ML 10ML SYR IV PRN (06:55)
[2023-12-15] MEDS ORDERED: Lactated Ringer's 1,000 ML IV SCH (06:55)
[2023-12-15] MEDS ORDERED: Lidocaine HCl 1% 5 ML SYR INJ ONE (06:55)
[2023-12-15] MEDS ORDERED: Albuterol 2.5 MG/3 ML VIAL INH PRN (06:55)
--- NOTE | 2023-12-15 07:08 | NUR ---
12/15/[address] FOX; SEE ANESTHESIA RECORDS.
[2023-12-15 07:54] VITALS: BP 150/84
[2023-12-15] MEDS ORDERED: Benzocaine Oral Spray 0.5ML UD ONE (08:20)
[2023-12-15 09:21] VITALS: BP 127/85
--- NOTE | 2023-12-15 09:47 | NUR ---
Discharge instructions reviewed with patient. Patient verbalizes understanding. Copy given to patient to take home. Discharged via wheelchair to private car for ride home W/ NICKY. GLASSES AND DENTURES GIVEN TO PT. PT PURSE AND BELONGINGS ALSO RETURNED TO PT.
== END 2023-12-15 09:50 | disposition home or self-care (01) ==
LOC: ORSCMMR 06:42 → ORD 08:30 → ORSCMMR 08:30
PROVIDERS: Internal Medicine Gastroenterology
PROC: 0DJD8ZZ Inspection of Lower Intestinal Tract, Via Natural or Artificial Opening Endoscopic (ICD-10-PCS; principal; 2023-12-15 08:30)
PROC: 0D758ZZ Dilation of Esophagus, Via Natural or Artificial Opening Endoscopic (ICD-10-PCS; principal; 2023-12-15 08:30)
PROC: 0DB68ZX Excision of Stomach, Via Natural or Artificial Opening Endoscopic, Diagnostic (ICD-10-PCS; principal; 2023-12-15 08:30)
DX: R13.14 Dysphagia, pharyngoesophageal phase (principal); Z12.11 Encounter for screening for malignant neoplasm of colon; Z86.010 Personal history of colon polyps; K44.9 Diaphragmatic hernia without obstruction or gangrene; K57.30 Diverticulosis of large intestine without perforation or abscess without bleeding; K29.50 Unspecified chronic gastritis without bleeding; Z98.84 Bariatric surgery status; I10 Essential (primary) hypertension; M62.89 Other specified disorders of muscle; F31.9 Bipolar disorder, unspecified; R56.9 Unspecified convulsions; G47.33 Obstructive sleep apnea (adult) (pediatric); J44.9 Chronic obstructive pulmonary disease, unspecified; E03.9 Hypothyroidism, unspecified; E11.9 Type 2 diabetes mellitus without complications; E78.00 Pure hypercholesterolemia, unspecified; Z79.4 Long term (current) use of insulin; Z79.899 Other long term (current) drug therapy
CPT/HCPCS: 43249; 43239; G0105; 82947; 88305; 88312; A9270; C1726; J2704; J7120

== ENCOUNTER 2024-07-26 07:23 | Emergency (ER) | payer OTHER ==
[~2024-07-26] VITALS: Ht 152.4 cm; Wt 72.6 kg
[~2024-07-26 07:23] MED LIST changes: -Lactated Ringer's 1,000 ML IV SCH
[2024-07-26 07:42] VITALS: BP 145/81
[2024-07-26] MEDS ORDERED: Ketorolac Tromethamine 30mg Vial IM ONE (07:50)
== END 2024-07-26 09:03 | disposition home or self-care (01) ==
LOC: ER 07:23
DX: M25.531 Pain in right wrist (principal); J44.89 Other specified chronic obstructive pulmonary disease; E11.9 Type 2 diabetes mellitus without complications; G47.30 Sleep apnea, unspecified; E78.00 Pure hypercholesterolemia, unspecified; Z79.899 Other long term (current) drug therapy; Z79.890 Hormone replacement therapy; Z79.4 Long term (current) use of insulin
CPT/HCPCS: 73110; 96372; 99283-25; J1885

== ENCOUNTER 2024-10-14 13:46 | Emergency (ER) | payer OTHER ==
[~2024-10-14] VITALS: Ht 152.4 cm; Wt 70.3 kg
[2024-10-14] MEDS ORDERED: Acetaminophen 500 MG Tab PO ONE (14:35)
[2024-10-14] MEDS ORDERED: Ketorolac Tromethamine 15mg Vial IM ONE (16:15)
[2024-10-14 16:21] VITALS: BP 124/79
== END 2024-10-14 16:27 | disposition home or self-care (01) ==
LOC: ER 13:46
DX: M79.81 Nontraumatic hematoma of soft tissue (principal); J44.9 Chronic obstructive pulmonary disease, unspecified; J45.909 Unspecified asthma, uncomplicated; E11.9 Type 2 diabetes mellitus without complications; E78.00 Pure hypercholesterolemia, unspecified; G43.909 Migraine, unspecified, not intractable, without status migrainosus; G47.30 Sleep apnea, unspecified; F43.10 Post-traumatic stress disorder, unspecified; Z79.4 Long term (current) use of insulin; Z79.899 Other long term (current) drug therapy
CPT/HCPCS: 76882; 96372; 99283-25; J1885

== ENCOUNTER → 2024-11-10 | Outpatient (CLI) | payer OTHER ==
[2024-11-10 12:32] LABS: International Normalized Ratio 1.02; Prothrombin Time Results 10.9 Sec (9.7-11.5)
[2024-11-10 12:37] LABS: BASOPHILS ABSOLUTE AUTO 0.06 K/mm3 (0.00-0.23); BASOPHILS PERCENT AUTO 1 % (0-2); EOSINOPHILS ABSOLUTE AUTO 0.16 K/mm3 (0.00-0.68); EOSINOPHILS PERCENT AUTO 3 % (0-6); Hematocrit 40.1 % (33.0-51.0); Hemoglobin 13.7 g/dL (11.5-16.0); IMMATURE GRAN ABSOLUTE AUTO 0.01 K/mm3 (0.00-0.10); IMMATURE GRAN PERCENT AUTO 0 % (0-1); LYMPHOCYTES ABSOLUTE AUTO 1.48 K/mm3 (0.84-5.20); LYMPHOCYTES PERCENT AUTO 26 % (21-46); MONOCYTES ABSOLUTE AUTO 0.45 K/mm3 (0.16-1.47); MONOCYTES PERCENT AUTO 8 % (4-13); Mean Corpuscular HGB 31.1 pg (26.0-34.0); Mean Corpuscular HGB Conc 34.2 g/dL (31.5-36.5); Mean Corpuscular Volume 91 fL (80-100); Mean Platelet Volume 11.7 fL (9.1-12.4); NEUTROPHILS ABSOLUTE AUTO 3.58 K/mm3 (1.96-9.15); NEUTROPHILS PERCENT AUTO 62 % (41-73); Platelet Count 191 K/mm3 (150-400); RDW Coefficient Variation 12.4 % (11.7-14.2); RDW Standard Deviation 41.7 fL (35.1-46.3); White Blood Cell Count 5.74 K/mm3 (4.00-11.30)
[2024-11-10 14:44] LABS: Albumin, Blood 3.8 g/dL (3.4-5.0); Albumin/Globulin Ratio 1.3 (0.8-1.8); Bilirubin, Total 0.9 mg/dL (0.1-1.0); Bun/Creatinine Ratio 16.3 (12.0-20.0); Calcium, Blood 8.9 mg/dL (8.5-10.1); Creatinine, Blood 0.73 mg/dL (0.40-1.00); Globulin, Blood 2.9 g/dL (2.2-4.0); Potassium, Blood 4.3 mmol/L (3.5-5.5); Total Protein, Blood 6.7 g/dL (6.4-8.2)
== END | disposition home or self-care (01) ==
LOC: LAB 11:07 → LAB SHORT 11:07
PROVIDERS: Family Medicine
DX: S40.021A Contusion of right upper arm, initial encounter (principal); I10 Essential (primary) hypertension
CPT/HCPCS: 80053; 85025; 85610; 85730

== ENCOUNTER 2025-01-21 18:29 | Emergency (ER) | payer OTHER ==
[~2025-01-21] VITALS: Ht 149.9 cm; Wt 63.5 kg
[2025-01-21 19:17] LABS: Source, Urine Voided
[2025-01-21 19:35] LABS: Appearance, Urine Hazy (Clear); Bilirubin, Urine Neg (Neg); Blood, Urine 5+ (Neg); Glucose Qualitative, Urine Neg (Neg); Ketones, Urine Neg (Neg); Leukocyte Esterase, Urine 3+ (Neg); Nitrite, Urine Neg (Neg); Protein, Urine 1+ (Neg); Specific Gravity, Urine 1.015 (1.003-1.022); Urobilinogen, Urine NORM (Normal)
[2025-01-21 20:09] LABS: Color, Urine Pale Yellow (P-Yellow)
[2025-01-21 20:10] LABS: Bacteria Few /hpf; Red Blood Cells, Urine 0-2 /hpf (0-2); Squamous Epithelial Cells Rare /hpf (Few); White Blood Cells, Urine TNTC /hpf (0-5)
[2025-01-21 20:55] VITALS: BP 126/81
[2025-01-21] MEDS ORDERED: Cephalexin Monohydrate 500 MG Cap PO ONE (20:55)
[2025-01-21] MEDS ORDERED: Phenazopyridine HCl 100 MG Tab PO ONE (20:55)
[2025-01-21] MEDS ORDERED: CEPH500 PO (20:57)
[2025-01-21] MEDS ORDERED: PHENA200 PO (20:57)
== END 2025-01-21 21:04 | disposition home or self-care (01) ==
LOC: ER 18:29
PROVIDERS: Emergency Medicine
DX: N39.0 Urinary tract infection, site not specified (principal); J44.9 Chronic obstructive pulmonary disease, unspecified
CPT/HCPCS: 81001; 87086; 99283; A9270

== ENCOUNTER → 2025-02-10 | Outpatient (CLI) | payer OTHER ==
[2025-02-10 20:03] LABS: Microalb/Creat Ratio UR, Rand 14.83 mg/g (0.000-30.000); Microalbumin, Random Urine 17.5 mg/L (0.000-20.000)
== END ==
LOC: LAB SHORT 17:25 → LAB 17:25
PROVIDERS: Family Medicine
DX: E11.9 Type 2 diabetes mellitus without complications (principal)
CPT/HCPCS: 82043; 82570

== ENCOUNTER 2025-03-07 10:37 | Day surgery (SDC) | payer OTHER ==
[~2025-03-07] VITALS: Ht 152.4 cm; Wt 64.1 kg
[~2025-03-07 10:37] MED LIST changes: +NS 500 ML IV ONE
[2025-03-07] MEDS ORDERED: NS 500 ML IV ONE (11:19)
[2025-03-07] MEDS ORDERED: BUSPIRONE HCL10 M6 PO (11:23)
[2025-03-07] MEDS ORDERED: OZEMPIC0.25 MG/02 SQ (11:23)
[2025-03-07] MEDS ORDERED: ROXICODONE15 MG PO (11:24)
[2025-03-07] MEDS ORDERED: PANT40 PO (11:25)
[2025-03-07] MEDS ORDERED: CeFAZolin Sodium 2,000 MG VIAL ONE (11:49)
[2025-03-07] MEDS ORDERED: Lidocaine 1%-Epineph 1:100000 20 ML MDV INJ ONE ×2 (11:59)
[2025-03-07] MEDS ORDERED: FentaNYL Citrate 50 MCG/ML 2 ML Injection ONE (12:03)
--- NOTE | 2025-03-07 12:56 | NUR ---
03/07/25 Michelle Yen PT TO PACU W/ LMA IN, RA. VSS. LMA OUT, POOR PLETH, ANESTH AT BEDSIDE. ATTEMPTED OBTAIN O2 RDG ON MULTIPLE FINGERS, R GREAT TOE, AND RIGHT EAR LOBE. PT ALERT, INTERACTING W STAFF, CHILDLIKE BEHAVIOR AND LANGUAGE. FINGERS ON OPERATIVE HAND COOL, SLOW CAP REFILL. 100% O2 READING ON R EAR LOBE. READY FOR STEPDOWN
--- NOTE | 2025-03-07 12:58 | NUR ---
03/07/25 1258 Michelle Pozo UPON SITTING PT UP, SCRATCHES AND SCABBING NOTED TO UPPER BACK, PT STATES "MY BRA MAKES ME ITCH." UPPER LOBES CLEAR, POSTERIOR LOWER LOBES SLIGHTLY COARSE. SATTING 95-98% ON RA W/ EAR PROBE ON.
[2025-03-07 13:02] VITALS: BP 116/55
== END 2025-03-07 13:19 | disposition home or self-care (01) ==
LOC: ORSCSDS 10:37
PROVIDERS: Orthopaedic Surgery
PROC: 0RBN0ZZ Excision of Right Wrist Joint, Open Approach (ICD-10-PCS; principal; 2025-03-07 12:30)
DX: R22.31 Localized swelling, mass and lump, right upper limb (principal); M18.11 Unilateral primary osteoarthritis of first carpometacarpal joint, right hand; I10 Essential (primary) hypertension; E11.9 Type 2 diabetes mellitus without complications; Z79.85 Long-term (current) use of injectable non-insulin antidiabetic drugs; J45.909 Unspecified asthma, uncomplicated; Z79.899 Other long term (current) drug therapy; E03.9 Hypothyroidism, unspecified; J44.9 Chronic obstructive pulmonary disease, unspecified; F31.9 Bipolar disorder, unspecified; E78.5 Hyperlipidemia, unspecified; F43.10 Post-traumatic stress disorder, unspecified; Z79.82 Long term (current) use of aspirin
CPT/HCPCS: 82947; 88304; J0690; J3010; J7040

== ENCOUNTER → 2025-03-29 | Outpatient (CLI) | payer OTHER ==
[~2025-03-29] MED LIST changes: +BUSPIRONE HCL10 M6 PO; -NS 500 ML IV ONE; +OZEMPIC0.25 MG/02 SQ; +ROXICODONE15 MG PO
[2025-04-01 06:12] LABS: C. TRACHOMATIS BY TMA,THINPREP Negative (Negative); N. GONORRHOEAE BY TMA,THINPREP Negative (Negative)
== END ==
LOC: LAB SHORT 14:42 → LAB 14:42
DX: Z12.4 Encounter for screening for malignant neoplasm of cervix (principal)
CPT/HCPCS: 87491; 87591; 87624; G0145

== ENCOUNTER 2025-04-14 17:43 | Emergency (ER) | payer OTHER ==
[~2025-04-14] VITALS: Ht 152.4 cm; Wt 61.2 kg
[2025-04-14 17:54] VITALS: BP 169/117
[2025-04-14] MEDS ORDERED: Buprenorphine HCL/Naloxone HCL 2-0.5MG 1 EA SL ONE (18:10)
[2025-04-14] MEDS ORDERED: SUBOXONE 8 MG-1 EACH SL (19:19)
[2025-04-14] MEDS ORDERED: Buprenorphine HCL/Naloxone HCL 8MG-2MG Tab SL ONE (19:35)
== END 2025-04-14 19:38 | disposition home or self-care (01) ==
LOC: ER 17:43
DX: F11.23 Opioid dependence with withdrawal (principal); J44.9 Chronic obstructive pulmonary disease, unspecified; E11.9 Type 2 diabetes mellitus without complications; G47.33 Obstructive sleep apnea (adult) (pediatric); F43.10 Post-traumatic stress disorder, unspecified; Z79.899 Other long term (current) drug therapy
CPT/HCPCS: 99283; A9270; J0572

== ENCOUNTER 2025-07-28 17:35 | Emergency (ER) | payer OTHER ==
[~2025-07-28] VITALS: Ht 162.6 cm; Wt 59.0 kg
[~2025-07-28 17:35] MED LIST changes: +SUBOXONE 8 MG-1 EACH SL
[2025-07-28] MEDS ORDERED: Ketorolac Tromethamine 15mg Vial IM ONE (18:15)
[2025-07-28 18:54] VITALS: BP 166/99
[2025-07-28] MEDS ORDERED: DULoxetine HCL 30 MG Cap DR PO ONE (20:45)
[2025-07-28] MEDS ORDERED: Levothyroxine Sodium 0.137 MG Tab PO ONE (20:45)
[2025-07-29] MEDS ORDERED: CEPH500 PO (06:18)
[2025-08-02] MEDS ORDERED: ONDA4ODT MM (12:06)
== END 2025-07-28 21:10 | disposition home or self-care (01) ==
LOC: ER 17:35
DX: Z76.0 Encounter for issue of repeat prescription (principal); J44.89 Other specified chronic obstructive pulmonary disease; E11.9 Type 2 diabetes mellitus without complications; G47.30 Sleep apnea, unspecified; E78.00 Pure hypercholesterolemia, unspecified; Z79.890 Hormone replacement therapy; Z79.85 Long-term (current) use of injectable non-insulin antidiabetic drugs; Z79.899 Other long term (current) drug therapy
CPT/HCPCS: 82947; 96372; 99281-25; A9270; J1885

== ENCOUNTER 2025-07-29 02:36 | Emergency (ER) | payer OTHER ==
[~2025-07-29] VITALS: Ht 149.9 cm; Wt 53.1 kg
[2025-07-29 03:11] VITALS: BP 97/68
[2025-07-29] MEDS ORDERED: Ondansetron 4 MG SoluTab SL ONE (05:10)
[2025-07-29 05:17] LABS: Source, Urine Clean Catch
[2025-07-29 05:29] LABS: Bilirubin, Urine Neg (Neg); Color, Urine Yellow (P-Yellow); Glucose Qualitative, Urine Neg (Neg); Ketones, Urine 1+ (Neg); Leukocyte Esterase, Urine 1+ (Neg); Protein, Urine 2+ (Neg); Specific Gravity, Urine 1.030 (1.003-1.022); Urobilinogen, Urine 1+ (Normal)
[2025-07-29 06:05] LABS: Red Blood Cells, Urine 0-2 /hpf (0-2)
[2025-07-29] MEDS ORDERED: RX Prepack 2 Tabs Ondansetron ODT 4MG UD ONE (06:10)
[2025-07-29] MEDS ORDERED: CEPH500 PO (06:18)
[2025-08-02] MEDS ORDERED: ONDA4ODT MM (12:06)
== END 2025-07-29 06:23 | disposition home or self-care (01) ==
LOC: ER 02:36
PROVIDERS: Student in an Organized Health Care Education/Training Program
DX: N30.00 Acute cystitis without hematuria (principal); R11.2 Nausea with vomiting, unspecified; F43.10 Post-traumatic stress disorder, unspecified; J44.89 Other specified chronic obstructive pulmonary disease; E11.9 Type 2 diabetes mellitus without complications; G47.30 Sleep apnea, unspecified; E78.00 Pure hypercholesterolemia, unspecified; Z79.899 Other long term (current) drug therapy
CPT/HCPCS: 81001; 87086; 99283; A9270

== ENCOUNTER 2025-08-07 07:51 | Observation (INO) | payer OTHER ==
[~2025-08-07] VITALS: Ht 149.9 cm; Wt 77.1 kg
[2025-08-07 10:01] VITALS: BP 135/93
[2025-08-07 10:43] LABS: Source, Urine Clean Catch
[2025-08-07 10:47] LABS: BASOPHILS ABSOLUTE AUTO 0.04 K/mm3 (0.00-0.23); BASOPHILS PERCENT AUTO 1 % (0-2); EOSINOPHILS ABSOLUTE AUTO 0.10 K/mm3 (0.00-0.68); EOSINOPHILS PERCENT AUTO 2 % (0-6); Hematocrit 40.3 % (33.0-51.0); Hemoglobin 13.8 g/dL (11.5-16.0); IMMATURE GRAN ABSOLUTE AUTO 0.03 K/mm3 (0.00-0.10); IMMATURE GRAN PERCENT AUTO 1 % (0-1); LYMPHOCYTES ABSOLUTE AUTO 1.55 K/mm3 (0.84-5.20); LYMPHOCYTES PERCENT AUTO 26 % (21-46); MONOCYTES ABSOLUTE AUTO 0.45 K/mm3 (0.16-1.47); MONOCYTES PERCENT AUTO 8 % (4-13); Mean Corpuscular HGB Conc 34.2 g/dL (31.5-36.5); Mean Corpuscular Volume 92 fL (80-100); NEUTROPHILS ABSOLUTE AUTO 3.83 K/mm3 (1.96-9.15); NEUTROPHILS PERCENT AUTO 64 % (41-73); NRBC ABSOLUTE 0.00 K/mm3 (0.00-0.02); NRBC Auto 0.0 /100 WBC (0.0-0.2); Platelet Count 288 K/mm3 (150-400); RDW Coefficient Variation 14.2 % (11.7-14.2); RDW Standard Deviation 47.9 fL (35.1-46.3)
[2025-08-07 10:58] LABS: Bilirubin, Urine Neg (Neg); Color, Urine Yellow (P-Yellow); Glucose Qualitative, Urine Neg (Neg); Ketones, Urine Neg (Neg); Leukocyte Esterase, Urine Neg (Neg); Protein, Urine Neg (Neg); Specific Gravity, Urine 1.010 (1.003-1.022); Urobilinogen, Urine NORM (Normal)
[2025-08-07 10:59] LABS: Alanine Aminotransfer (ALT/SGP 31.0 U/L (12-78); Albumin, Blood 3.9 g/dL (3.4-5.0); Albumin/Globulin Ratio 1.4 (0.8-1.8); Anion Gap 9.0 mmol/L (3-11); Aspartate Aminotrans (AST/SGOT 18.0 U/L (12-37); Bilirubin, Total 0.5 mg/dL (0.1-1.0); Blood Urea Nitrogen 11.0 mg/dL (8-24); CO2, Blood 30.0 mmol/L (21-32); Calcium, Blood 8.7 mg/dL (8.5-10.1); Chloride, Blood 96.0 mmol/L (98-108); Creatinine, Blood 0.69 mg/dL (0.40-1.00); Globulin, Blood 2.7 g/dL (2.2-4.0); Glucose, Blood 107.0 mg/dL (70-99); Potassium, Blood 3.7 mmol/L (3.5-5.5); Sodium, Blood 131.0 mmol/L (136-145); Total Protein, Blood 6.6 g/dL (6.4-8.2)
[2025-08-07] MEDS ORDERED: Ketorolac Tromethamine 30mg Vial IV ONE (12:50)
[2025-08-07 15:14] LABS: Influenza A, PCR NEGATIVE (NEGATIVE); Influenza B, PCR NEGATIVE (NEGATIVE); Resp Syncytial Virus, PCR NEGATIVE (NEGATIVE); SARS-Cov-2 (COVID-19) PCR, MMC NEGATIVE (NEGATIVE)
[2025-08-07] MEDS ORDERED: Flonase 0.05% N16 GM ×2 (16:04)
== END 2025-08-07 15:35 | disposition other institution (70) ==
LOC: ER 07:51 → EOR 09:31 → ER 11:50 → EOR 11:50
PROVIDERS: ADMIT Emergency Medicine
DX: R45.851 Suicidal ideations (principal); J18.9 Pneumonia, unspecified organism; J44.1 Chronic obstructive pulmonary disease with (acute) exacerbation; E11.9 Type 2 diabetes mellitus without complications; F41.0 Panic disorder [episodic paroxysmal anxiety]; G43.909 Migraine, unspecified, not intractable, without status migrainosus; G47.30 Sleep apnea, unspecified; F31.9 Bipolar disorder, unspecified; F43.10 Post-traumatic stress disorder, unspecified; E78.00 Pure hypercholesterolemia, unspecified; Z79.85 Long-term (current) use of injectable non-insulin antidiabetic drugs; Z79.890 Hormone replacement therapy; Z79.899 Other long term (current) drug therapy; Z98.84 Bariatric surgery status
CPT/HCPCS: 71045; 80053; 81003; 85025; 87637; 96374; 99285-25; G0378; J1885

== ENCOUNTER 2025-08-07 13:34 | Inpatient (IN) | payer OTHER ==
[~2025-08-07] VITALS: Ht 149.9 cm; Wt 61.2 kg
[2025-08-07] MEDS ORDERED: FLU VACC TS2025-26(6MOS UP)/PF 45 MCG/0.5 ML SYRINGE IM SCH (14:50)
[2025-08-07] MEDS ORDERED: DiphenhydrAMINE HCl 50 MG/ML 1ML Vial IM PRN (14:50)
[2025-08-07] MEDS ORDERED: Aluminum Hydroxide 320MG/5ML 473 ML PO PRN (14:50)
[2025-08-07] MEDS ORDERED: LORazepam 2 MG/ML 1ML Injection IM PRN (14:55)
[2025-08-07] MEDS ORDERED: Polyethylene Glycol 3350 17 gm PO PRN (14:55)
[2025-08-07] MEDS ORDERED: Haloperidol Lactate Inj. 5 MG/ML Injection IM PRN (14:55)
[2025-08-07] MEDS ORDERED: Ondansetron 4 MG SoluTab MM PRN (15:00)
[2025-08-07 15:52] VITALS: BP 144/89
[2025-08-07] MEDS ORDERED: Flonase 0.05% N16 GM ×2 (16:04)
[2025-08-07 17:12] VITALS: BP 144/89
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
[2025-08-07] MEDS ORDERED: Albuterol HFA200 ACT/6.7 GM INH INH PRN (20:50)
[2025-08-07 20:53] VITALS: BP 149/99
[2025-08-07] MEDS ORDERED: Fluticasone 0.05% Nasal Spray SCH (21:00)
[2025-08-07] MEDS ORDERED: Buprenorphine HCL/Naloxone HCL 8MG-2MG Tab SL SCH (21:00)
--- NOTE | 2025-08-08 05:05 | NUR ---
SHIFT SUMMARY 65 YEAR-OLD FEMALE PRESENTS WELL GROOMED. SHE IS ALERT AND ORIENTED. SHE SPEAKS IN A CLEAR VOICE AND IN AN APPROPRIATE VOLUME. SHE IS ABLE TO MAKE AND KEEP EYE CONTACT DURING CONVERSATIONS. AT THE TIME OF HER ASSESSMENT, SHE DESCRIBED HER MOOD "ANGRY. MAD. CONFUSED". SHE ALSO DENIED HI, AND AVTH AT THAT TIME. SHE DID HOWEVER ENDORSE SI WITH INTENT TO ACT. SHE STATED THAT IS SHE COULD SHE WOULD PROBABLY JUST JUMP INTO THE RIVER TO END IT. SHE DID NOT ATTEND SNACK OR DAY ROOM. SHE WAS COMPLIANT WITH MEDICATION ADMINISTRATION. SHE RECEIVED THE FOLLOWING PRN MEDICATIONS: TRAZADONE 50MG AT 2134 FOR SLEEP. SHE CONTINUES TO BE MONITORED EVERY 15 MINUTES FOR WELLNESS AND SAFETY.
--- NOTE | 2025-08-08 05:06 | NUR ---
PRN NOTE PATIENT RECEIVED THE FOLLOWING PRN MEDICATIONS DURING UNDERGRADUATE ADVISOR: TRAZADONE 50MG AT 2134 FOR SLEEP.
[2025-08-08] MEDS ORDERED: Levothyroxine Sodium 0.137 MG Tab PO SCH (06:00)
[2025-08-08 08:08] LABS: CHOL/HDL RATIO 2.8; Cholesterol 221 mg/dL (50-200); HDL Cholesterol 80 mg/dL (>39); LDL/HDL RATIO 1.4; Low Density Lipoprotein Chol 115 mg/dL (0-110); Triglycerides 130 mg/dL (30-160); Very Low Density Lipoprot Chol 26 mg/dL (6-32)
[2025-08-08 08:18] VITALS: BP 147/92
[2025-08-08] MEDS ORDERED: DULoxetine HCL 60 MG Capsule DR PO SCH (09:00)
[2025-08-08] MEDS ORDERED: Multivitamins 1 Tab PO SCH (09:00)
--- NOTE | 2025-08-08 18:36 | NUR ---
SHIFT SUMMARY PT WAS ANXIOUS THIS SHIFT. SHE WAS CONCERNED ABOUT GETTING THE CORRECT MEDICATIONS, CALLING HER PO, AND HOUSING ISSUES. PT DID SPEAK SPEAK TO HER PO AND/OR LEFT A MESSAGE. PT WAS GIVEN MIRALAX PO FOR C/O NO BP FOR A FEW DAYS. SHE WAS COMPLIANT WITH ALL OTHER MEDICATIONS. SHE C/O HAVING LITTLE TO NO SLEEP AND WANTING HER PRAZOSIN ORDERED PER HER HOME MED REC. MED IS AWARE OF THIS. PT PARTICIPATED IN ALL BUT ONE GROUP D/T SHE GOT FATIGUED FROM LACK OF SLEEP, OF WHICH THIS RN EXCUSED HER FRO THAT GROUP D/T SHE IS NEW TO UNIT. PT HAD NO OTHER ACUTE BEHAVIORS TO REPORT.
[2025-08-08 20:21] VITALS: BP 159/99
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
--- NOTE | 2025-08-09 00:13 | NUR ---
ASSUMPTION OF CARE ASSUMED CARE OF PATIENT FROM MATT TRINIDAD AT MIDNIGHT. SHE IS CURRENTLY RESTING QUIETLY IN HER BED. NO SIGNS OF ACUTE DISTRESS NOTED. SHE RECEIVED TO FOLLOWING PRN MEDICATIONS PRIOR IN THE SHIFT: ZYPREXA ZYDIS 10MG FOR ANXIETY AT 2052. CONTINUES TO BE MONITORED EVERY 15 MINUTES FOR WELLNESS AND SAFETY.
--- NOTE | 2025-08-09 04:32 | NUR ---
END OF SHIFT SUMMARY PATIENT HAS SLEPT SINCE THIS CRANE RIGGER ASSUMED CARE AT MIDNIGHT. NO PRN MEDICATIONS WERE UTILIZED. PATIENT DOES NOT SEEM TO BE IN ANY ACUTE DISTRESS. CONTINUES TO BE MONITORED EVERY 15 MINUTES FOR WELLNESS AND SAFETY.
[2025-08-09 07:42] VITALS: BP 110/75
--- NOTE | 2025-08-09 08:47 | NUR ---
CURTAIN SUPERVISOR YAHIR SCOTT ([facility])- PATIENT REQUESTED THAT I REACH OUT TO LET HER PO KNOW THAT SHE IS INPATIENT. SHE MISSED A COURT MANDATED CLASS YESTERDAY- JOI CLASS- AND THIS COULD TRIGGER A WARRANT. A VOICE MAIL WAS LEFT ON YAHIR SCOTT PHONE. PATIENT STATES RELIEF THAT HE IS AWARE.
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
--- NOTE | 2025-08-09 16:51 | NUR ---
PATIENT IS ALERT AND ORIENTATED. SHE IS STATING THAT SHE IS SUICIDAL BUT SAFE HERE. SHE IS DISCOURAGED BY HER THOUGHT THAT SHE WOULD BE BETTER OFF . SHE HAS CONCERN ABOUT DISCHARGE AND WHAT IS GOING TO HAPPEN. PATIENT HAS CLEAR SPEECH AND DENIES ALL HALLUCINATIONS. SHE IS CLEAN, GROOMED AND HAS PARTICIPATED IN GROUP. CYMBALTA DOSE INCREASED TODAY. OZEMPIC WAS BROUGHT IN FROM HOME, APPROVED BY DR. GARCIA AND WILL BE GIVE SC WEEKLY. SHE WOULD LIKE TO START THE DOSE TONIGHT. THE OZEMPIC PEN IS SIMILAR TO INSULIN, BUT THE DOSE IS LISTED IN MG WHEN THE DIAL IS TURNED. PATIENT HAD A VISITOR THIS SHIFT AND MOOD IMPROVED WITH THE VISIT FROM HER DAUGHTER.
[2025-08-09 19:35] VITALS: BP 127/74
[2025-08-09] MEDS ORDERED: DULoxetine HCL 60 MG Capsule DR PO SCH (21:00)
[2025-08-09] MEDS ORDERED: Misc. Injectable SC SCH (21:00)
--- NOTE | 2025-08-10 04:57 | NUR ---
SHIFT SUMMARY 65 YEAR-OLD FEMALE PRESENTS WELL GROOMED. SHE IS ALERT AND ORIENTED. SHE SPEAKS IN A CLEAR VOICE AND IN AN APPROPRIATE VOLUME. SHE IS ABLE TO MAKE AND KEEP EYE CONTACT DURING CONVERSATIONS. AT THE TIME OF HER ASSESSMENT, SHE DESCRIBED HER MOOD "DEPRESSED UTTERLY BROKEN". SHE ALSO DENIED HI, AND AVTH AT THAT TIME. SHE DID ENDORSE SI AND STATED THAT SHE WOULD PROBABLY WOULD KILL HERSELF IF DISCHARGED AT THAT TIME SHE ATTENDED SNACK AND DAY ROOM. SHE WAS COMPLIANT WITH CARE AND MEDICATION ADMINISTRATION. SHE RECEIVED THE FOLLOWING PRN MEDICATIONS: TRAZADONE 50MG FOR SLEEP AT 2111. SHE CONTINUES TO BE MONITORED EVERY 15 MINUTES FOR WELLNESS AND SAFETY AND WITH EVERY 4 HOUR SI SAFETY AND MITIGATION CHECKS.
--- NOTE | 2025-08-10 04:58 | NUR ---
PRN NOTE PATIENT RECEIVED THE FOLLOWING PRN MEDICATIONS DURING LOOM CHANGER: TRAZADONE 50MG FOR SLEEP AT 2110
[2025-08-10 07:14] VITALS: BP 106/67
--- NOTE | 2025-08-10 07:43 | NUR ---
Patient reports she slept well. She states that her roommate woke her when she heard this patient saying "no, no, no" in her sleep. Patient doesn't remember having a nightmare. Patient describes her mood as sad, confused. She reports that she has some glimmers of hope now, which she didn't before coming to [facility]. She likes the groups and says that she "is actually learning some things". Patient has a grapefruit size brownish to yellow faded bruise on her upper left lateral thigh from a fall onto a log before admission. She states that the suboxone helps the pain. Ozempic weekly injection started last night and the patient tolerated well.
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
[2025-08-11 09:29] VITALS: BP 109/67
[2025-08-11] MEDS ORDERED: Insulin Human Lispro 100 Units/ML 3ML Syringe SC SCH (11:30)
--- NOTE | 2025-08-11 13:37 | NUR ---
SHIFT ASSESSMENT: PT ENDORSED SI, "NOT IN HERE, BUT IF I WAS OUT OF HERE I WOULD LOAD ROCKS IN MY POCKETS AND JUMP INTO THE RIVER." SHE REPORTED HER MOOD , "SAD, BROKENHEARTED, SUICIDAL AND ANXIOUS." HER AFFECT WAS CONGRUENT WITH HER STATED MOOD. PT ENDORSED ANXIETY BUT DID'T REQUEST A MEDICATION FOR IT. PT APPEARS WELL GROOMED WITH CLEAN HAIR. PT HAS BEEN ACTIVE IN SEVERAL GROUPS AND IS HAS BEEN IN THE PT [facility].
--- NOTE | 2025-08-11 17:12 | NUR ---
PT'S BLOOD SUGARS, 12:27:153, 2 UNITS OF HUMALOG GIVEN PER LOW SLIDING SCALE. 13:38 BLOOD SUGAR 138 WITH NO COVERAGE NEEDED. PT IS RESTING IN BED AT THIS TIME.
[2025-08-11 19:41] VITALS: BP 121/78
--- NOTE | 2025-08-11 21:29 | NUR ---
PRN MEDICATION ADMINISTRATION: PATIENT REQUESTED AND WAS GIVEN TRAZODONE 50 MG PO FOR C/O INSOMNIA. CONTINUING TO MONITOR FOR EFFECTIVENESS.
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
[2025-08-12 08:01] VITALS: BP 107/76
--- NOTE | 2025-08-12 17:26 | NUR ---
SHIFT SUMMARY PT AxOx4. PLEASANT AND COOPERATIVE WITH CARE. PT ENDORSED FLEETING SI THIS AM WITH NO INTENT OR PLAN AT THIS TIME. SHE DENIED HI AND AVTH. SHE HAS BEEN FOLLOWING TREATMENT PLAN INCLUDING TAKING MEDS PRESCRIBED, ATTENDING [facility] GROUPS AND MINGLING APPROPRIATELY WITH PEERS/STAFF. PT C/O CONSTIPATION TODAY. INCREASED BOWEL CARE ORDERED AND ADMINISTERED. PROVIDER ALSO INCREASED HER PRAZOSIN TO BID, STARTING THIS SHIFT, WHICH PATIENT WAS AGREEABLE TO AND LOOKING FORWARD TO. PT DENIES SI LATER IN THE AFTERNOON. CBG'S WNL THIS SHIFT. NO INSULIN COVERAGE INDICATED. SHE IS CURRENTLY SITTING IN THE GROUP ROOM WATCHING TV. DENIES ANY NEEDS AT THIS TIME.
[2025-08-12 20:35] VITALS: BP 100/79
--- NOTE | 2025-08-12 21:15 | NUR ---
PRN MEDICATION ADMINISTRATION: PATIENT REQUESTED AND WAS GIVEN TRAZODONE AT 2103. NOTE: PATIENT CBG 108 AT , NO COVERAGE INDICATED.
--- NOTE | 2025-08-13 03:00 | NUR ---
PRN MEDICATION ADMINISTRATION: PATIENT STATED THAT SHE IS HAVING "NIGHT TERRORS" AND THAT THEY WOKE HER UP AND SHE CANNOT SLEEP DUE TO FEAR OF HAVING MORE. SHE REQUESTED MORE PRAZOCIN, BUT NONE IS ORDERED AND HER HS BP WAS 100/79. MEDICATION EDUCATION REGARDING VISTARIL FOR ANXIETY WAS GIVEN AND SHE CHOSE TO REQUEST VISTARIL 50 MG PO PRN ANXIETY. THE MEDICATION WAS GIVEN DIRECTED AT 0251. CONTINUING TO MONITOR FOR EFFECTIVENESS.
--- NOTE | 2025-08-13 04:31 | NUR ---
SHIFT SUMMARY: PATIENT IS A 65 YEAR OLD FEMALE ADMITTED TO THE [facility] ON 08/07/25 WITH DEPRESSION WITH SUICIDAL IDEATION. SHE PRESENTED SOMEWHAT SAD AND DEPRESSED. SHE DESCRIBED HER MOOD "WORRIED" BECAUSE "I DON'T FEEL LIKE MY NIGHTMARE MEDICATION IS WORKING". SHE HAD A NEW ORDER OF SENNA BID, AND STATED THAT SHE HAD A "SMALL BM". SHE STATED THAT IT "LOOKED BLACK" AND WAS ASKED TO NOT FLUSH NEXT TIME AND LET THE NURSE LOOK AT IT. SHE STATED THAT SHE WOULD. HER CBG AT WAS 108, WITH NO COVERAGE NECESSARY. SHE PRESENTED FAIRLY GROOMED AND STATED THAT SHE HAD BEEN EATING AND ATTENDING GROUPS. SHE STATED THAT SHE "SLEPT WELL FOR A WHILE" THE PREVIOUS NIGHT. SHE PARTICIPATED IN [facility] SNACK AND WRAP UP GROUP, AND INTERACTED WELL WITH PEERS AND STAFF. SHE WAS COMPLIANT WITH EVENING MEDICATION ADMINISTRATION, AND REQUESTED TRAZODONE FOR C/O INSOMNIA, WHICH WAS GIVEN DIRECTED AT 2104. SHE WOKE UP AT 0251, C/O "NIGHT TERRORS AND NIGHTMARES" THAT HAD CAUSED HER TO "SOAK THROUGH MY CLOTHING" WHICH REQUIRED A CHANGE OF SCRUBS. SHE WANTED MORE PRAZOCIN, BUT WAS TOLD THAT IT IS SCHEDULED. RN GAVE MEDICATION EDUCATION REGARDING VISTARIL, WHICH THE PATIENT DECIDED TO REQUEST. SHE STAYED UP FOR A TIME AFTER TAKING VISTARIL AT 0251, ASKING ABOUT BIBLE VERSES REGARDING DIVORCE. THEN SHE WENT TO BED, WHERE SHE WAS NOTED TO BE RESTING QUIETLY WITH EYES CLOSED AND RESPIRATIONS CONFIRMED. SHE DENIED SUICIDAL IDEATION AND THOUGHTS OF SELF HARMING THROUGHOUT THE SHIFT, STATING, "I FEEL SAFE HERE". CONTINUING TO MONITOR FOR SAFETY WITH Q15 MINUTE CHECKS.
--- NOTE | 2025-08-13 04:44 | NUR ---
MASS SCORE FOR PRN: PATIENT WAS GIVEN VISTARIL FOR ANXIETY AT 0251. MASS SCORE WAS 4. CONTINUING TO MONITOR FOR EFFECTIVENESS.
[2025-08-13 08:07] VITALS: BP 133/91
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
--- NOTE | 2025-08-13 21:15 | NUR ---
PRN MEDICATION ADMINISTRATION: PATIENT REQUESTED TRAZODONE 50 MG PO PRN INSOMNIA FOR C/O SLEEPLESSNESS. MEDICATION WAS GIVEN DIRECTED. CONTINUING TO MONITOR FOR EFFECTIVENESS.
--- NOTE | 2025-08-14 03:33 | NUR ---
PRN MEDICATION ADMINISTRATION: PATIENT REQUESTED IBUPROFEN 600 MG PO PRN PAIN FOR NECK PAIN 7/, WHICH WAS GIVEN DIRECTED AT 0328. PATIENT REQUESTED VISTARIL 50 MG PO PRN ANXIETY FOR ANXIETY MASS SCORE 3, WHICH WAS GIVEN DIRECTED AT 0328. CONTINUING TO MONITOR FOR EFFECTIVENESS.
--- NOTE | 2025-08-14 04:28 | NUR ---
SHIFT SUMMARY: PATIENT IS A 65 YEAR OLD FEMALE WHO PRESENTED ADEQUATELY GROOMED. SHE WAS ALERT AND ORIENTED X4. SHE SPOKE IN AN ANXIOUS TONE OF VOICE IN A SOFT VOLUME. SHE LOOKED DOWN OFTEN WHILE CONVERSING. SHE DESCRIBED HER MOOD "ANXIOUS", WHICH WAS CONGRUENT WITH HER PRESENTATION. SHE DENIED SI, HI AND AVTH. SHE DID STATE, "I FEEL SUICIDAL SORT OF WEAKLY, BUT I WOULDN'T DO IT HERE." SHE STATED, "I THINK I SHOULD STAY UNTIL MY DAUGHTER AND I GET THAT APARTMENT. I'M NOT WELL YET AT ALL." SHE WAS IN BED RESTING AND DID NOT ATTEND SNACK OR WRAP UP GROUP. SHE WAS COMPLIANT WITH CARES AND EVENING MEDICATION ADMINISTRATION. SHE REQUESTED AND WAS GIVEN THE FOLLOWING: TRAZODONE FOR INSOMNIA AT 2100, EFFECTIVE IBUPROFEN FOR 7/10 NECK PAIN AT 327, EFFECTIVE VISTARIL FOR MASS SCORE 3 (ANXIETY) AT 327, EFFECTIVE CONTINUING TO MONITOR Q15 MINUTES FOR WELLNESS AND SAFETY.
[2025-08-14 07:39] VITALS: BP 119/74
--- NOTE | 2025-08-14 18:15 | NUR ---
SHIFT SUMMARY PT A/O X4; PLEASANT AND COOPERATIVE WITH CARE. SHE REPORTS SOME CHRONIC, PASSIVE SI BUT DENIES HI OR AVTH. PT C/O CONSTIPATION THIS SHIFT AND WAS GIVEN MIRALAX IN APPLE JUICE PER HER REQUEST. PT C/O NAUSEA AFTER DRINKING THE APPLE JUICE AND WAS GIVEN ZOFRAN. PT HAS BEEN IN BED SINCE THE AFTERNOON DUE TO NOT FEELING WELL. PT REPORTED NOT SLEEPING WELL LAST NIGHT BUT WAS ABLE TO NAP TODAY. SHE ATTENDED MORNING GROUP AND BREAKFAST AND LUNCH.
[2025-08-14 19:19] VITALS: BP 130/86
--- NOTE | 2025-08-14 20:17 | NUR ---
PRN MEDICATION ADMINISTRATION: PATIENT REQUESTED TRAZODONE FOR INSOMNIA, WHICH WAS GIVEN DIRECTED AT 2006. CONTINUING TO MONITOR FOR EFFECTIVENESS.
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
[2025-08-15 08:49] VITALS: BP 119/80
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
[2025-08-15 20:13] VITALS: BP 116/75
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
--- NOTE | 2025-08-16 03:51 | NUR ---
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
--- NOTE | 2025-08-16 05:15 | NUR ---
SHIFT SUMMARY Assumed care at 0400 from MATT Cowan. Patient has been sleeping since assumption of care. Please see MID SHIFT SUMMARY for a more detailed description of the entire shift. Will continue close observation every 15 minutes for safety and wellness per unit standard.
[2025-08-16 08:59] VITALS: BP 107/75
--- NOTE | 2025-08-16 09:48 | NUR ---
SHIFT ASSESSMENT: UPON INITIAL ASSESSMENT PT IS ALERT, ORIENTED AND COOPERATIVE WITH CARE. SHE IS COMPLIANT WITH AM MEDICATIONS. SHE DENIES HI AND AVH. REPORTS SI BUT DENIES PLAN OR INTENTION. SHE APPEARS FRUSTRATED AND IS TEARFUL STATES, "OF COURSE I DO, IM OLD AND ABOUT TO BE HOMELESS ON THE STREETS". WHEN ASKED ABOUT A PLAN SHE STATES, "NO, THERE IS NOTHING I CAN DO HERE". AFTER SPEAKING WITH [facility] AND FINDING OUT THEY WILL BE PICKING HER UP TO TAKE HER TO [facility] PT DENIES SI AND STATES THAT SHE FEELS SAFE.
--- NOTE | 2025-08-16 10:47 | NUR ---
IMPORTANT DISCHARGE INFORMATION PATIENT TO BE DISCHARGED TODAY. SHE WILL BE PICKED UP AROUND 1PM BY [facility]. THEIR NUMBER IS . ALL PARTIES VERBALIZE AN UNDERSTANDING. FOLLOW UP WITH PCP AT THE [facility] ON 08/23/24 AT 1:45PM. FOLLOW UP WITH [facility] OPEN [facility]ESS FOR CONTINUED MENTAL HEALTH SERVICES PATIENT WILL BE HOUSED AT THE LOCAL [facility]. FAMILY AND FRIENDS WILL NOT BE TOLD THIS INFORMATION THEY ARE A SECURED DETENTION. PHARMACY: [facility] FAX NUMBER
[2025-08-16] MEDS ORDERED: Buspirone HCl15 MG PO ×2 (11:56)
[2025-08-16] MEDS ORDERED: DULO60 PO ×2 (11:57)
--- NOTE | 2025-08-16 13:24 | NUR ---
DISCHARGE NOTE: PT DISCHARGED. PROVIDED WITH DISCHARGE INSTRUCTIONS, PT STATED UNDERSTANDING AND DENIED QUESTIONS. PT PROVIDED WITH BELONGINGS BY SABIHA GUTIERREZ. AMBULATED OUT OF UNIT WITHOUT DIFFICULTY TO AWAITING RIDE. DISCHARGE INSTRUCTIONS AND BELONGINGS IN HAND.
== END 2025-08-16 13:24 | disposition home or self-care (01) | DRG 885 ==
LOC: BHU 13:34
PROVIDERS: ADMIT Psychiatry & Neurology Psychiatry
DX: F31.4 Bipolar disorder, current episode depressed, severe, without psychotic features (principal); R45.851 Suicidal ideations; F43.10 Post-traumatic stress disorder, unspecified; J44.89 Other specified chronic obstructive pulmonary disease; E11.9 Type 2 diabetes mellitus without complications; E78.00 Pure hypercholesterolemia, unspecified; Z86.19 Personal history of other infectious and parasitic diseases; F41.9 Anxiety disorder, unspecified; G43.909 Migraine, unspecified, not intractable, without status migrainosus; Z90.49 Acquired absence of other specified parts of digestive tract; Z90.89 Acquired absence of other organs; Z98.890 Other specified postprocedural states; Z98.51 Tubal ligation status
CPT/HCPCS: 36415; 80061; 82947; 83036; 96372; A9270; G0008